=== PATIENT | male | born 1940 | race Caucasian/White ===

== ENCOUNTER 2016-07-26 11:51 | Observation (INO) | payer OTHER ==
[~2016-07-26] VITALS: Ht 180.3 cm; Wt 114.0 kg
[~2016-07-26 11:51] MED LIST: /GLYB5TA; AVAN8TAB3; CIPR500T19; CRES5TAB; FURO40TA2; LOPI600T; METFPOW4; NIAC10TA; TRIC145T19; omega 3
[2016-07-26] MEDS ORDERED: ATOR1TAB21 PO (12:13)
[2016-07-26] MEDS ORDERED: METF10004 PO (12:13)
[2016-07-26] MEDS ORDERED: ASPI1TAB PO (12:13)
[2016-07-26] MEDS ORDERED: FURO20TA2 PO (12:13)
[2016-07-26] MEDS ORDERED: VALS1TAB46 PO (12:13)
[2016-07-26] MEDS ORDERED: TRIC145T22 PO (12:13)
[2016-07-26] MEDS ORDERED: GLIP10TA6 PO (12:13)
[2016-07-26 13:37] LABS: BASO % 0.3 % (0.0-1.0); EOS # 0.1 K/mm3 (0.0-0.50); LARGE UNSTAINED CELL # 0.2 K/mm3 (0.0-0.4); LARGE UNSTAINED CELL % 3.2 % (0.0-4.0); LYMPH # 1.1 K/mm3 (1.5-4.5); LYMPH % 13.4 % (24.0-44.0); MEAN CORPUSCULAR HEMOGLOBIN 30.6 pg (27.0-33.0); MEAN CORPUSCULAR HGB CONC 33.5 g/dl (32.0-36.5); MEAN CORPUSCULAR VOLUME 91.4 fl (80.0-96.0); MONO # 0.8 K/mm3 (0.0-0.8); MONO % 11.7 % (0.0-5.0); NEUTROPHILS # 4.5 K/mm3 (1.8-7.7); NEUTROPHILS % 70.5 % (36.0-66.0); PLATELET COUNT, AUTOMATED 189 k/mm3 (150-450); WHITE BLOOD COUNT 6.4 K/mm3 (4.0-10.0)
--- NOTE | 2016-07-26 14:07 | REP ---
CHEST, TWO VIEWS: COMPARISON: 10/15/2013. Two views of the chest are performed. There is no acute infiltrate or pulmonary edema. The heart is normal in size. There is mild calcification of the thoracic aorta. There are degenerative changes of the spine. IMPRESSION: No evidence of acute infiltrate. Signed by Mark Blas MD 07/27/2016 05:10 P
[2016-07-26 14:09] LABS: ALBUMIN 3.3 GM/DL (3.2-5.2); ALKALINE PHOSPHATASE 65 U/L (45-117); ALT/SGPT 55 U/L (12-78); ANION GAP 11 MEQ/L (8-16); AST/SGOT 34 U/L (15-37); BILIRUBIN,DIRECT 0.1 MG/DL (0.0-0.2); BILIRUBIN,TOTAL 0.8 MG/DL (0.2-1.0); BLOOD UREA NITROGEN 60 MG/DL (7-18); CALCIUM LEVEL 8.7 MG/DL (8.8-10.2); CARBON DIOXIDE LEVEL 19 MEQ/L (21-32); CHLORIDE LEVEL 109 MEQ/L (98-107); CREATININE FOR GFR 1.54 MG/DL (0.70-1.30); GLOMERULAR FILTRATION RATE 47.1 (>42); SODIUM LEVEL 139 MEQ/L (136-145); TOTAL PROTEIN 6.6 GM/DL (6.4-8.2)
[2016-07-26] MEDS ORDERED: GASTROGRAFIN SOLUTION 30ML PO ONE (14:40)
--- NOTE | 2016-07-26 15:00 | ECGEPIP ---
Stationary ECG Study [facility] - ED Test Date: 2016-07-26 Pat Name: SHELBY KELLEY Department: Room: - Gender: M Senior Sas Developer: JIza : 1940 Requested By: ALEE Rao Order Number: [id number] Reading MD: Marck Fry Measurements Intervals [place] Rate: 93 P: 52 [place]: 178 QRS: 256 QRSD: 144 T: 28 QT: 372 QTc: 465 Interpretive Statements SINUS RHYTHM LAD RIGHT BUNDLE BRANCH BLOCK NO PRIORS Electronically Signed On 07-26-2016 14:59:59 EDT by Marck Fry
[2016-07-26] MEDS ORDERED: GASTROGRAFIN SOLUTION 30ML (Q9963) PO ONE (15:10)
[2016-07-26] MEDS ORDERED: ISOVUE-370 76% 100ML VIAL (Q9967) As Ordered ONE (15:55)
[2016-07-26] MEDS ORDERED: NS 1,000 ML IV SCH (16:49)
--- NOTE | 2016-07-26 17:15 | REP ---
REASON: Abdominal pain and diarrhea. PRIORS: None. CONTRAST: 100 mL [id number]. Chronic fibrotic changes are seen in the lung abrams. There are no pleural or pericardial effusions. The liver, gallbladder, spleen, pancreas, adrenal glands, and kidneys are within normal limits. The abdominal aorta is within normal limits. There is paraortic adenopathy. There are mildly dilatated fluid and gas filled small bowel loops in the abdomen. There is wall irregularity involving one small bowel loops seen in association with slight fatty infiltration of that small bowel loops mesenteric leaf. This finding is difficulty to evaluate by CT. There is a tiny dot of free air within that fatty infiltrated small bowel mesentery. There is no free fluid in the abdomen. The appendix is well visualized and is within normal limits compared. CT PELVIS: The pelvic bowel loops and their mesenteries are within normal limits. The pelvic bowel loops and their mesenteries are within normal limits. There is no free pelvic fluid or air. Bone window technique throughout the exam shows chronic spinal, hip, and sacroiliac joint degenerative changes. IMPRESSION:1. Subtle and difficulty to evaluate finding involving a loop of small bowel in the midabdomen just to the right of the midline as described above. A tiny dot of free air in the associated mesentery can not be ruled out. The findings are extremely subtle and difficult to evaluate. I am uncertain if the finding is secondary to inflammatory diseases such as Crohn's or neoplastic change. Clinical correlation and followup is necessary. 2. There is a small bowel ileus. 3. There is paraortic adenopathy which needs clinical correlation and followup. 4. Other findings as described above. These findings were discussed with Dr. David Herzog at the time of this dictation. Signed by Javier Werner DO 07/27/2016 12:04 P
[2016-07-26] MEDS ORDERED: CYAN1000VL IM (17:55)
[2016-07-26] MEDS ORDERED: FURO40TA2 PO (17:55)
[2016-07-26] MEDS: HumaLOG INSULIN (NovoLOG) PER UNIT SC SCH (18:00)
--- NOTE | 2016-07-26 18:43 | CR.PDOC ---
[facility] Consultation Consultation DATE OF CONSULTATION: Jul 26, 2016 at 13:36 PRIMARY CARE PHYSICIAN: [[facility]/Dr. Lugo] REFERRING PROVIDER: [Dr. Lam] ATTENDING PHYSICIAN: [Dr. Lam] REASON FOR CONSULTATION/CHIEF COMPLAINT: [Medical management]. HISTORY OF PRESENT ILLNESS: [Mr. Espinoza is a 76-year-old male presents to the emergency department with severe diarrhea for the last 4 days he 's had decreased appetite but denies nausea, vomiting. Denies any blood in stool. He informs me that several years ago he had similar symptoms resulted in a perforated diverticulum that was treated by Dr. Stanford at the time. He states he had been in his usual state of health prior to Sunday woke up and started developing some abdominal cramping which is progressively gotten worse over the last few days prior medical history includes hypertension, hyperlipidemia, morbid obesity, diabetes and prior perforation of diverticulum.] . ALLERGIES: Please see below. HOME MEDICATIONS: Please see below. PAST MEDICAL HISTORY: 1. Hypertension. 2. Hyperlipidemia. 3. Morbid obesity. 4. Diabetes. 5. Diverticulitis with history of perforated diverticulum. PAST SURGICAL HISTORY: 1. Perforated diverticulum resulting in exploratory laparotomy. FAMILY HISTORY: Noncontributory SOCIAL HISTORY: Quit smoking 25 years ago. Alcohol use is occasional.. He denies recent travel, sick contacts, no pets. REVIEW OF SYSTEMS: CONSTITUTIONAL: No fever, chills, weight loss, nausea or vomiting . HEENT: No headache, lightheadedness, blurred or loss of vision. No difficulty with speech or swallow. CARDIOVASCULAR: No chest pain, palpitations, paroxysmal nocturnal dyspnea or lower extremity edema RESPIRATORY: No cough, productive sputum, wheeze or hemoptysis GENITOURINARY: No dysuria, frequency, or discharge MUSCULOSKELETAL: No bone, muscle or joint pain. GASTROINTESTINAL: Abdominal cramping with diarrhea for proximally 4 days. No [place]ue[place], vomitting, but decrease in appetite. Bowel movements are loose with diarrhea, but without hematochezia or melena. No bladder or bowel incontinence. SKIN: No complaint of lesions, abrasions or rashes NEUROLOGICAL: No blurred vision, headaches, parasthesias or paralysis PSYCHIATRIC: No depression, anxiety, audiovisual hallucinations. No suicidal ideations. ENDOCRINE: Denies history of diabetes or thyroid disorder. No history of endocrine abnormalities. HEMATOLOGIC/LYMPHATIC: No lumpbs, bumps or swelling of neck, axilla or groin. No night sweats or weight loss. PHYSICAL EXAMINATION: VITAL SIGNS: Please see below. GENERAL APPEARANCE: [No acute distress, is alert, pleasant]. HEENT: [His age, right more cephalic. Eyes PERRLA. Throat clear. ]. RESPIRATORY: [Clear to auscultation bilaterally]. CARDIOVASCULAR: [Regular rate and rhythm]. ABDOMEN: [Distended, hypoactive bowel sounds. Vague tenderness with no rebound]. EXTREMITIES: [Range of motion limitations. Pulses are equal and no edema]. NEUROLOGICAL: [Cranial nerves II through XII are grossly intact]. Twelve-lead EKG sinus rhythm, appears to have a right bundle branch block but no acute ST-T wave abnormalities. CT abdomen and pelvis with contrast:1. Subtle and difficulty to evaluate finding involving a loop of small bowel in the midabdomen just to the right of the midline as described above. A tiny dot of free air in the associated mesentery can not be ruled out. The findings are extremely subtle and difficult to evaluate. I am uncertain if the finding is secondary to inflammatory diseases such as Crohn's or neoplastic change. Clinical correlation and followup is necessary. 2. There is a small bowel ileus. 3. There is paraortic adenopathy which needs clinical correlation and followup. 4. Other findings as described above. Chest x-ray: No evidence of acute infiltrate. LABORATORY DATA: Please see below. Problem list: 1. Small bowel obstruction with possible perforation with free air demonstrated on CT scan. 2. Diabetes. 3. hyperlipidemia. 4. Hypertension 5. Morbid obesity which complicates medical care. Recommendations: Patient will remain nothing by mouth. IV fluids per surgical team and will defer further evaluation per Dr. Lam. We'll place orders regarding his diabetes, with fingersticks every 6 hours with sliding scale coverage per [facility] protocol. We'll review his med reconciliation list and put appropriate hold parameters on any blood pressure medications. For tonight and will hold his Lasix and avoid any other nephrotoxic meds. Concerning the oral diabetic medications, especially Glucophage we will hold this and cover with insulin for now. DVT prophylaxis. Will defer to surgeon. Thank you for the consultation tomorrow morning. Dr. Tinoco will continue to follow this patient during her hospital stay, please feel free to contact us if any other issues should occur. Should the patient need any surgical intervention would recommend this be considered urgent and would not recommend any further workup that would delay intervention should the need arise. Vital Signs/I&O Vital Signs Date Time Temp Pulse Resp B/P (MAP) Pulse Ox O2 Delivery O2 Flow Rate FiO2 07/26/16 18:11 88 115/58 (77) 94 07/26/16 11:52 98.4 18 Room Air Laboratory Data Labs 24H Laboratory Tests 2 07/26/16 13:22: White Blood Count 6.4, Red Blood Count 4.30, Hemoglobin 13.1L, Hematocrit 39.2L , Mean Corpuscular Volume 91.4, Mean Corpuscular Hemoglobin 30.6, Mean Corpuscular Hemoglobin Concent 33.5, Red Cell Distribution Width 15.0H, Platelet Count 189, Neutrophils (%) (Auto) 70.5H, Lymphocytes (%) (Auto) 13.4L, Monocytes (%) (Auto) 11.7H, Eosinophils (%) (Auto) 1.0, Basophils (%) (Auto) 0.3 , Neutrophils # (Auto) 4.5, Lymphocytes # (Auto) 1.1L, Monocytes # (Auto) 0.8, Eosinophils # (Auto) 0.1, Basophils # (Auto) 0.0, Large Unclassified Cells % 3.2 , Large Unclassified Cells # 0.2, Urine Appearance CLEAR, Urine Color YELLOW, Urine pH 5.0, Urine Specific [place] 1.019, Urine Protein NEGATIVE, Urine Glucose (UA) NEGATIVE, Urine Ketones NEGATIVE, Urine Urobilinogen 2.0H, Urine Bilirubin NEGATIVE, Urine Leukocyte Esterase 1+H, Urine Blood NEGATIVE, Urine Nitrite NEGATIVE, Urine WBC (Auto) 8H, Urine RBC (Auto) 2, Urine Hyaline Casts ( Auto) 5, Urine Bacteria (Auto) NEGATIVE, Urine Squamous Epithelial Cells 0, Urine Sperm (Auto) , Anion Gap 11, Glomerular Filtration Rate 47.1, Calcium Level 8.7L, Aspartate Amino Transf (AST/SGOT) 34, Alanine Aminotransferase (ALT/ SGPT) 55, Alkaline Phosphatase 65, Total Bilirubin 0.8, Direct Bilirubin 0.1, Total Creatine Kinase 121, Creatine Kinase MB 2.7, Creatine Kinase MB Relative Index 2.23, Troponin I < 0.02, Total Protein 6.6, Albumin 3.3, Albumin/Globulin Ratio 1.00, Lipase 145 07/26/16 17:23: Lactic Acid Level 1.1 CBC/BMP Laboratory Tests 07/26/16 13:22 Red Blood Count 4.30, Mean Corpuscular Volume 91.4, Mean Corpuscular Hemoglobin 30.6, Mean Corpuscular Hemoglobin Concent 33.5, Red Cell Distribution Width 15.0 H, Neutrophils (%) (Auto) 70.5 H, Lymphocytes (%) (Auto) 13.4 L, Monocytes (%) (Auto) 11.7 H, Eosinophils (%) (Auto) 1.0, Basophils (%) (Auto) 0.3, Neutrophils # (Auto) 4.5, Lymphocytes # (Auto) 1.1 L, Monocytes # (Auto) 0.8, Eosinophils # (Auto) 0.1, Basophils # (Auto) 0.0 Microbiology Microbiology 07/26/16 Urine Culture, Received Pending Allergies Coded Allergies: No Known Drug Allergy (Verified Allergy, Unknown, 05/08/12) Home Medications Scheduled Aspirin (Aspirin 81) 81 Mg Tab, 81 MG PO QHS, (Reported) Atorvastatin Calcium (Atorvastatin Calcium) 20 Mg Tab, 20 MG PO DAILY, (Reported ) Cyanocobalamin (Cyanocobalamin) 1,000 Mcg/1 Ml Inj, 1,000 MCG IM QMONTH, ( Reported) Fenofibrate (Tricor) 145 Mg Tab, 145 MG PO DAILY, (Reported) Furosemide (Furosemide) 40 Mg Tab, 40 MG PO DAILY, (Reported) Glipizide (Glipizide) 10 Mg Tab, 10 MG PO BID, (Reported) takes at noon and dinner time Metformin Hydrochloride (Metformin HCl) 1,000 Mg Tab, 1,000 MG PO BID, (Reported ) Valsartan (Valsartan) 80 Mg Tab, 1 TAB PO DAILY, (Reported) ALANNAH MONTANA DO Jul 26, 2016 18:43
[2016-07-26] MEDS ORDERED: LR 1,000 ML IV SCH (19:02)
[2016-07-26] MEDS ORDERED: ACETAMINOPHEN TAB 650MG DOSE (2X325MG) PO PRN (19:15)
[2016-07-26] MEDS ORDERED: ONDANSETRON 4MG/2ML VIAL (J2405) IV PRN (19:15)
[2016-07-26] MEDS ORDERED: GLUCAGON FOR INJ 1 MG VIAL (J1610) SC PRN (19:45)
[2016-07-26] MEDS ORDERED: DEXTROSE 50% 50 ML SYRINGE IV PRN (19:45)
[2016-07-26] MEDS ORDERED: GLUCOSE 4 GM CHEW TABLET PO PRN (19:45)
[2016-07-26 20:15] VITALS: BP 119/57
[2016-07-26] MEDS ORDERED: ZOSYN 3.375 GM VIAL (J2543) As Ordered ONE (20:46)
[2016-07-26] MEDS: PIPERACILLIN/TAZOBACTAM SOD 3.375 GM in D5W MINI-BAG PLUS 50 ML IV SCH (20:59)
[2016-07-26] MEDS: ASPIRIN 81 MG ENTERIC TAB PO SCH (22:32)
[2016-07-26] MEDS: PANTOPRAZOLE 40MG INJ (PROTONIX) (C9113) IV SCH (22:32)
[2016-07-26] MEDS: SENOKOT S TAB PO SCH (22:33)
[2016-07-26] MEDS: HEPARIN SOD (PORCINE) 5000 UNITS/ML VIAL SC SCH (22:33)
[2016-07-27] MEDS: PIPERACILLIN/TAZOBACTAM SOD 3.375 GM in D5W MINI-BAG PLUS 50 ML IV SCH ×4 (03:10→21:06)
[2016-07-27 05:47] LABS: CALCIUM LEVEL 8.4 MG/DL (8.8-10.2); CREATININE FOR GFR 1.68 MG/DL (0.70-1.30); GLOMERULAR FILTRATION RATE 42.6 (>42); MAGNESIUM LEVEL 1.6 MG/DL (1.8-2.4); MEAN CORPUSCULAR HEMOGLOBIN 30.7 pg (27.0-33.0); MEAN CORPUSCULAR HGB CONC 33.4 g/dl (32.0-36.5); POTASSIUM SERUM 4.2 MEQ/L (3.5-5.1); RED CELL DISTRIBUTION WIDTH 15.2 % (11.5-14.5); WHITE BLOOD COUNT 6.7 K/mm3 (4.0-10.0)
[2016-07-27 06:00] VITALS: BP 113/57
[2016-07-27] MEDS: HumaLOG INSULIN (NovoLOG) PER UNIT SC SCH ×4 (06:00→17:36)
[2016-07-27] MEDS: HEPARIN SOD (PORCINE) 5000 UNITS/ML VIAL SC SCH ×3 (06:10→21:07)
[2016-07-27] MEDS ORDERED: MAG SULF 1GM/100ML (MAG RUN) 1 GM in APPROPRIATE DILUENT 1 EA IV ONE (07:30)
[2016-07-27] MEDS: ATORVASTATIN 20 MG TAB PO SCH (09:06)
[2016-07-27] MEDS: FENOFIBRATE 145 MG TAB (TRICOR) PO SCH (09:06)
[2016-07-27] MEDS: SENOKOT S TAB PO SCH ×2 (09:06→21:06)
--- NOTE | 2016-07-27 11:35 | IPNPDOC ---
Text Note Date of Service The patient was seen on 07/27/16. NOTE Subjective: Patient is a 76 year old male with a PMHx of HTN, DLP, Morbid obesity , NIDM2, and Diverticulosis who presented to the ER with complaints of diarrhea for 4 days, associated with appetite and abdominal cramping. Patient was admitted to medical surgical floor under general surgery's service. Upon evaluation by surgery, abdomen was noted to be benign and he was started on a liquid diet. Patient was seen and examined at the bedside. Currently he has been tolerating his diet, no nausea, vomiting, abdominal cramping. He notes that he has had a bowel movement this morning. Objective: Vitals (See below) General: Lying in bed, no acute distress, comfortable, AAOx3 HEENT: NC, AT CVS: RRR, +S1S2 Lungs: Fair air entry b/l, -w/r/r Abdomen: Soft, ND, NT, +BSx4 Extremities: +PPx4, - Edema, - Calf tenderness Assessment and plan: 1. Abdominal pain associated with diarrhea - possibly 2/2 gastroenteritis, possibly 2/2 small bowel obstruction, less likely 2/2 perforation - Symptoms have resolved, no more diarrhea - Has had bowel movement this morning, no nausea or vomiting - Physical reveals a benign abdomen without guarding or rigidity - CT abdomen / pelvis (07/26): possible small bowel ileus, adenopathy, possible small focus of air - Labs within normal limits - c/w IV fluid hydration and Zosyn (Day #2) 2. PRATIBHA - likely 2/2 pre-renal etiology 2/2 hypovolemia - Baseline Cr of 1.1 - Cr has been mildly elevated - c/w IV fluid hydration 3. NIDDM2 - c/w ISS 4. DLP - c/w Atorvastatin and Fenofibrate 5. HTN - BP controlled without medications at this time (re: possibly 2/2 hypovolemia) - Furosemide and Valsartan on hold 6. Morbid obesity 7. Hx of Diverticulosis 8. GI prophylaxis - c/w Protonix 9. DVT prophylaxis - c/w Heparin VS,Fishbone, I+O VS, Fishbone, I+O Laboratory Tests 07/26/16 13:22 Red Blood Count 4.30, Mean Corpuscular Volume 91.4, Mean Corpuscular Hemoglobin 30.6, Mean Corpuscular Hemoglobin Concent 33.5, Red Cell Distribution Width 15.0 H, Neutrophils (%) (Auto) 70.5 H, Lymphocytes (%) (Auto) 13.4 L, Monocytes (%) (Auto) 11.7 H, Eosinophils (%) (Auto) 1.0, Basophils (%) (Auto) 0.3, Neutrophils # (Auto) 4.5, Lymphocytes # (Auto) 1.1 L, Monocytes # (Auto) 0.8, Eosinophils # (Auto) 0.1, Basophils # (Auto) 0.0 07/27/16 04:59 Red Blood Count 3.77 L, Mean Corpuscular Volume 92.0, Mean Corpuscular Hemoglobin 30.7, Mean Corpuscular Hemoglobin Concent 33.4, Red Cell Distribution Width 15.2 H, Calcium Level 8.4 L Vital Signs Date Time Temp Pulse Resp B/P (MAP) Pulse Ox O2 Delivery O2 Flow Rate FiO2 07/27/16 06:00 97.0 53 18 113/57 (75) 100 Room Air I&O- Last 24 Hours up to 6 AM 07/27/16 05:59 Intake Total 0 ml Output Total 0 ml Balance 0 ml MERLE POON MD Jul 27, 2016 11:35
[2016-07-27 14:00] VITALS: BP 108/53
[2016-07-27] MEDS ORDERED: HumaLOG INSULIN (NovoLOG) PER UNIT SC SCH (21:00)
[2016-07-27] MEDS: PANTOPRAZOLE 40MG INJ (PROTONIX) (C9113) IV SCH (21:06)
[2016-07-27] MEDS: ASPIRIN 81 MG ENTERIC TAB PO SCH (21:06)
[2016-07-27 22:00] VITALS: BP 134/63
[2016-07-28] MEDS: PIPERACILLIN/TAZOBACTAM SOD 3.375 GM in D5W MINI-BAG PLUS 50 ML IV SCH ×2 (02:40→08:20)
[2016-07-28 06:00] VITALS: BP 132/72
[2016-07-28 06:03] LABS: MEAN CORPUSCULAR HEMOGLOBIN 30.2 pg (27.0-33.0); MEAN CORPUSCULAR VOLUME 91.6 fl (80.0-96.0); RED CELL DISTRIBUTION WIDTH 15.1 % (11.5-14.5); WHITE BLOOD COUNT 4.5 K/mm3 (4.0-10.0)
[2016-07-28 06:13] LABS: CALCIUM LEVEL 8.7 MG/DL (8.8-10.2); CREATININE FOR GFR 1.27 MG/DL (0.70-1.30); GLOMERULAR FILTRATION RATE 58.9 (>42); MAGNESIUM LEVEL 2.1 MG/DL (1.8-2.4); POTASSIUM SERUM 4.7 MEQ/L (3.5-5.1)
[2016-07-28] MEDS: HEPARIN SOD (PORCINE) 5000 UNITS/ML VIAL SC SCH (06:15)
[2016-07-28] MEDS: HumaLOG INSULIN (NovoLOG) PER UNIT SC SCH ×2 (07:49→12:15)
[2016-07-28] MEDS: ATORVASTATIN 20 MG TAB PO SCH (08:21)
[2016-07-28] MEDS: SENOKOT S TAB PO SCH (08:21)
[2016-07-28] MEDS: FENOFIBRATE 145 MG TAB (TRICOR) PO SCH (08:21)
--- NOTE | 2016-07-28 10:54 | IPNPDOC ---
Text Note Date of Service The patient was seen on 07/28/16. NOTE Subjective: Patient is a 76 year old male with a PMHx of HTN, DLP, Morbid obesity , NIDM2, and Diverticulosis who presented to the ER with complaints of diarrhea for 4 days, associated with appetite and abdominal cramping. Patient was admitted to medical surgical floor under general surgery's service. Upon evaluation by surgery, abdomen was noted to be benign and he was started on a liquid diet. Patient was seen and examined at the bedside. Patient noted that yesterday afternoon he had some abdominal pain, that has since resolved. Denied any nausea , vomiting abdominal pain, constipation or diarrhea today. Objective: Vitals (See below) General: Lying in bed, no acute distress, comfortable, AAOx3 HEENT: NC, AT CVS: RRR, +S1S2 Lungs: Fair air entry b/l, -w/r/r Abdomen: Soft, ND, NT, +BSx4 Extremities: +PPx4, - Edema, - Calf tenderness Assessment and plan: 1. s/p Abdominal pain associated with diarrhea - possibly 2/2 gastroenteritis - likely 2/2 viral etiology, less likely 2/2 small bowel obstruction, less likely 2/2 perforation - Symptoms have resolved; no abdominal pain, diarrhea / nausea / vomiting - Physical reveals a benign abdomen without guarding or rigidity, + bowel sounds - CT abdomen / pelvis (07/26): possible small bowel ileus, adenopathy, possible small focus of air - Labs within normal limits - c/w Zosyn (Day #3) 2. s/p PRATIBHA - likely 2/2 pre-renal etiology 2/2 hypovolemia - Baseline Cr of 1.1 - Cr has now normalized - s/p IV fluid hydration 3. NIDDM2 - c/w ISS 4. DLP - c/w Atorvastatin and Fenofibrate 5. HTN - BP controlled without medications at this time (re: possibly 2/2 hypovolemia) - Furosemide and Valsartan on hold 6. Morbid obesity 7. Hx of Diverticulosis 8. GI prophylaxis - c/w Protonix 9. DVT prophylaxis - c/w Heparin VS,Fishbone, I+O VS, Fishbone, I+O Laboratory Tests 07/28/16 05:47 Red Blood Count 3.92 L, Mean Corpuscular Volume 91.6, Mean Corpuscular Hemoglobin 30.2, Mean Corpuscular Hemoglobin Concent 33.0, Red Cell Distribution Width 15.1 H, Calcium Level 8.7 L Vital Signs Date Time Temp Pulse Resp B/P (MAP) Pulse Ox O2 Delivery O2 Flow Rate FiO2 07/28/16 06:00 97.0 80 19 132/72 (92) 95 Room Air I&O- Last 24 Hours up to 6 AM 07/28/16 05:59 Intake Total 1165 ml Output Total 525 ml Balance 640 ml MERLE POON MD Jul 28, 2016 10:54
--- NOTE | 2016-07-29 01:51 | DSES ---
DATE OF ADMISSION: 07/26/2016 DATE OF DISCHARGE: 07/28/2016 ADMISSION DIAGNOSIS: Ileus. DISCHARGE DIAGNOSIS: Ileus likely secondary to either a viral or bacterial source. HOSPITAL COURSE: The patient is a 76-year-old male who presented on 07/26 with chief complaint of nausea, vomiting and crampy left abdominal pains. He was brought in to the emergency room, had a CT scan that showed a possible closed loop obstruction with dilation of small bowel, as well as possible free air outside his small intestine. On exam, his abdomen was soft. His nausea, vomiting had resolved and he had felt much better. However, due to the abnormal CT scan, recommendation was to keep him overnight to monitor him. He was started on clear liquid diet the next morning 07/27. He was continuing to improve, felt much better. He was advanced to a regular diet by lunchtime. Labs were all improved during the day. Vital signs were stable. However, after advancing to a regular diet around noontime, he had a little bit of exacerbation of this crampy abdominal pain. Therefore, we kept him overnight again. Today 07/28, he again is feeling much improved. He has been tolerating regular diet last evening and this morning. No more nausea or vomiting. Having bowel movements, passing gas, ambulating without difficulty. Therefore, plan is to discharge home today. I explained to him that this could be an intermittent thing; however, due to the fact that he does have an incarcerated fat containing incisional hernia in his midabdomen that could be causing some of these symptoms. I advised him to followup with me in the office if he continues to have these intermittent crampy pains. We can schedule him for repair of the hernia and do a diagnostic laparoscopy with lysis of adhesions at the same time to see if we can find any other causes for his crampy pains.
--- NOTE | 2016-07-31 12:14 | HPE ---
DATE OF ADMISSION: 07/26/2016 CHIEF COMPLAINT: Nausea and vomiting. HISTORY OF PRESENT ILLNESS: The patient is a 76-year-old male who came to emergency room with diarrhea for the past 4 days along with decrease of appetite and increasing crampy pains periumbilically. He did have similar symptoms in the past that resulted in perforated diverticulitis and because of that concern he came into the emergency room for evaluation. In the emergency room (ER), he had a CT scan done which showed a small bowel ileus along with a loop of small bowel in the mid abdomen just lateral to the umbilicus with a tiny dot possible free air. However, that is very nonspecific. Because of these findings, I was asked to evaluate, On exam, he does have significant tenderness just left of the umbilicus, fairly localized area. There is no diffuse tenderness. Denies any nausea or emesis. He does have these loose stools. He is still passing gas. Does not feel distended. No surgeries other than his exploratory surgery with diverticulitis that was perforated resulting in bowel resection. However, he states that ,that was repaired primarily and he did not have a colostomy for it. No recent travel. No change in his diet. No one around him has been sick. PAST MEDICAL HISTORY: 1. Hypertension. 2. Hyperlipidemia. 3. Diabetes. 4. Diverticulitis and diverticulosis. PAST SURGICAL HISTORY: Perforated diverticulosis resulting exploratory laparotomy with primary repair. ALLERGIES: Please see med rec. HOME MEDICATIONS: Please see med rec. FAMILY HISTORY: Noncontributory. REVIEW OF SYSTEMS: Pertinent positives, negative stated in the HPI. PHYSICAL EXAMINATION: General: Alert and oriented times three. No acute distress. Vital signs: Temperature 94, pulse 80, respirations 18, blood pressure 115/50, by pulse oximetry 94% room air. HEENT: Pupils equal, round and react to light accommodation. Heart: S1, S2, regular rate and rhythm. Lungs: Clear to auscultation bilaterally. Abdomen: Soft. Tender to palpation in left midabdomen. Localized guarding. No signs generalized peritonitis. Extremities: No clubbing, cyanosis or edema. LABORATORIES: White count 6.4, hemoglobin 13.1, platelets 189. Lactic acid 1.1, potassium 5, creatinine 1.54. IMAGING: CT abdomen and pelvis shows subtle difficult to evaluate finding involving a loop of small bowel in the mid abdomen just to the right of midline a tiny dot of free air in the associated mesentery cannot be ruled out. The findings are extremely subtle and difficult to evaluate. Uncertain if this is related to inflammatory disease versus neoplastic. It was a very small bowel ileus. ASSESSMENT AND PLAN: The patient 76-year-old male with findings on CAT scan that are nonspecific for an ileus versus partial obstruction versus partial small bowel perforation. On exam, the patient does not have any findings of peritonitis. No fevers or chills. Normal white count . At this time, will likely treat as a gastroenteritis. Will keep him nothing by mouth for now with IV fluids, antibiotics. As long as he does not show any signs of increasing fevers, pain, leukocytosis by morning, we will start him on a diet and slowly advance. If he is does show signs of increasing pain, elevated lactic acidosis, increasing white blood cell count or fevers, then I will consider diagnostic laparoscopy to determine the cause of this obstruction. This could all be again just related to gastroenteritis. However, due to his extensive history in the past with his large surgery, this could also be a partial obstruction secondary to adhesions. So could treat medically for now and monitor him closely with further intervention as necessary.
== END 2016-07-28 13:21 | disposition home or self-care (01) ==
LOC: M ED 13:36 → M ED INP 19:02 → M MSPAV 20:20
PROVIDERS: ADMIT Surgery; ATTEND Surgery
DX: K56.7 Ileus, unspecified (principal); I10 Essential (primary) hypertension; E11.9 Type 2 diabetes mellitus without complications; K57.30 Diverticulosis of large intestine without perforation or abscess without bleeding; K57.32 Diverticulitis of large intestine without perforation or abscess without bleeding; E66.01 Morbid (severe) obesity due to excess calories; Z87.891 Personal history of nicotine dependence; Z79.82 Long term (current) use of aspirin; Z79.899 Other long term (current) drug therapy
CPT/HCPCS: 36415; 71020; 74177; 80048; 80076; 81001; 82550; 82553; 83605; 83690; 83735; 84484; 85025; 85027; 87086; 93005; 93041; 94760; 96361; 96365; 96366; 96372; 96375; 96376; 99285; C9113; G0378; J2543; J3475; Q9963; Q9967

== ENCOUNTER 2018-07-12 14:25 | Emergency (ER) | payer MEDICARE, OTHER ==
[~2018-07-12] VITALS: Ht 180.3 cm; Wt 126.1 kg
[~2018-07-12 14:25] MED LIST changes: -/GLYB5TA; +ASPI81TA26 PO; +ATOR1TAB21 PO; +CYAN1000VL IM; +FURO20TA2 PO; +FURO40TA2 PO; +GLIP10TA6 PO; +GLYB1TAB29; +METF10004 PO; +TRIC145T22 PO; +VALS1TAB66 PO
[2018-07-12] MEDS ORDERED: LANTINJ4 SC ×2 (14:35)
[2018-07-12] MEDS ORDERED: VICT18IN2 (14:35)
[2018-07-12 15:21] LABS: BASO % 0.5 % (0.0-1.0); EOS # 0.2 10^3/uL (0.0-0.50); EOS % 1.9 % (0.0-3.0); HEMATOCRIT 41.8 % (42.0-52.0); HEMOGLOBIN 13.5 g/dl (13.5-17.5); LYMPH # 1.8 10^3/uL (1.5-4.5); LYMPH % 22.9 % (24.0-44.0); MEAN CORPUSCULAR HEMOGLOBIN 30.3 pg (27.0-33.0); MEAN CORPUSCULAR HGB CONC 32.3 g/dl (32.0-36.5); MEAN CORPUSCULAR VOLUME 93.7 fl (80.0-96.0); MONO % 11.9 % (0.0-5.0); NEUTROPHILS % 61.6 % (36.0-66.0); PLATELET COUNT, AUTOMATED 276 10^3/uL (150-450); RED BLOOD COUNT 4.46 10^6/uL (4.30-6.10); WHITE BLOOD COUNT 8.1 10^3/uL (4.0-10.0)
[2018-07-12] MEDS ORDERED: NS 1,000 ML IV ONE (15:45)
[2018-07-12 15:51] LABS: ALBUMIN 3.4 GM/DL (3.2-5.2); BILIRUBIN,DIRECT 0.2 MG/DL (0.0-0.2); BILIRUBIN,TOTAL 0.4 MG/DL (0.2-1.0); CALCIUM LEVEL 8.9 MG/DL (8.8-10.2); CREATININE FOR GFR 1.39 MG/DL (0.70-1.30); GLOMERULAR FILTRATION RATE 52.7 (>42); POTASSIUM SERUM 4.7 MEQ/L (3.5-5.1); TOTAL PROTEIN 7.2 GM/DL (6.4-8.2)
[2018-07-12] MEDS ORDERED: CEFP200T PO (18:41)
[2018-07-12] MEDS ORDERED: KEFL500C17 PO (18:58)
[2018-07-12 19:00] VITALS: BP 140/63
--- NOTE | 2018-07-13 06:50 | REP ---
BILATERAL LOWER EXTREMITY DUPLEX DOPPLER VENOUS ULTRASOUND: Real-time compression and duplex Doppler interrogation of bilateral lower extremity deep venous systems is performed. Bilaterally, common femoral, superficial femoral and popliteal veins are fully compressible with transducer pressure and demonstrate normal spontaneous and phasic flow without evidence of deep venous thrombosis. There is bilateral inguinal adenopathy. The largest on the right is 3.9 x 1.1 x 2.7 cm and left 4.6 x 1.0 x 2.3 cm. Electronically Signed by Mark Blas MD 07/16/2018 09:54 A
--- NOTE | 2018-07-13 07:52 | REP ---
KUB ONE VIEW: HISTORY: Hyperactive bowel sounds. Air is present in small and large intestine. There are no air fluid levels or dilated loops of intestine. There is no pneumoperitoneum. IMPRESSION: Nonspecific bowel gas pattern. Electronically Signed by Michael Zapata MD 07/13/2018 07:55 A
--- NOTE | 2018-07-16 13:18 | ED PDOC ---
Post-Departure Follow-Up dr mathis faxed formal report of us extrem for Darell Akhtar MD Jul 16, 2018 13:18
== END 2018-07-12 19:03 | disposition home or self-care (01) ==
LOC: M ED 14:25
DX: N39.0 Urinary tract infection, site not specified (principal); E86.0 Dehydration; N18.9 Chronic kidney disease, unspecified; R79.89 Other specified abnormal findings of blood chemistry; E11.9 Type 2 diabetes mellitus without complications; I12.9 Hypertensive chronic kidney disease with stage 1 through stage 4 chronic kidney disease, or unspecified chronic kidney disease; Z79.899 Other long term (current) drug therapy; Z79.82 Long term (current) use of aspirin; Z79.4 Long term (current) use of insulin; Z87.891 Personal history of nicotine dependence

== ENCOUNTER → 2018-07-19 | Outpatient (REF) | payer MEDICARE ==
[~2018-07-19] MED LIST changes: +CEFP200T PO; +KEFL500C17 PO; +LANTINJ4 SC; +VICT18IN2
[2018-07-19 20:07] LABS: CALCIUM LEVEL 10.8 MG/DL (8.8-10.2); CREATININE FOR GFR 1.55 MG/DL (0.70-1.30); GLOMERULAR FILTRATION RATE 46.5 (>42); POTASSIUM SERUM 4.8 MEQ/L (3.5-5.1)
== END ==
LOC: M LABDRWAD 19:01
PROVIDERS: ATTEND Nurse Practitioner Family
DX: I10 Essential (primary) hypertension (principal)

== ENCOUNTER → 2018-08-22 | Outpatient (CLI) | payer MEDICARE ==
[~2018-08-22] MED LIST changes: +ALBU8.5H IH; +DIPH2.5T15 PO; +FOLGTAB5 PO; +KETO2CR TOP
[2018-08-22 17:40] LABS: ALBUMIN 3.7 GM/DL (3.2-5.2); BILIRUBIN,TOTAL 0.4 MG/DL (0.2-1.0); CALCIUM LEVEL 9.1 MG/DL (8.8-10.2); CREATININE FOR GFR 1.42 MG/DL (0.70-1.30); GLOMERULAR FILTRATION RATE 51.5 (>42); POTASSIUM SERUM 4.6 MEQ/L (3.5-5.1); TOTAL PROTEIN 6.7 GM/DL (6.4-8.2)
[2018-08-22 17:42] LABS: BASO % 0.4 % (0.0-1.0); EOS # 0.2 10^3/uL (0.0-0.50); EOS % 2.4 % (0.0-3.0); HEMATOCRIT 40.2 % (42.0-52.0); HEMOGLOBIN 12.9 g/dl (13.5-17.5); LYMPH % 27.8 % (24.0-44.0); MEAN CORPUSCULAR HEMOGLOBIN 30.1 pg (27.0-33.0); MEAN CORPUSCULAR HGB CONC 32.1 g/dl (32.0-36.5); MEAN CORPUSCULAR VOLUME 93.9 fl (80.0-96.0); MONO # 0.7 10^3/uL (0.0-0.8); MONO % 10.1 % (0.0-5.0); NEUTROPHILS # 4.2 10^3/uL (1.8-7.7); NEUTROPHILS % 58.9 % (36.0-66.0); PLATELET COUNT, AUTOMATED 221 10^3/uL (150-450); RED BLOOD COUNT 4.28 10^6/uL (4.30-6.10); WHITE BLOOD COUNT 7.2 10^3/uL (4.0-10.0)
== END ==
LOC: M LABDRWAD 11:38
PROVIDERS: ATTEND Nurse Practitioner Family
DX: R19.7 Diarrhea, unspecified (principal)

== ENCOUNTER → 2018-08-22 | Outpatient (REF) | payer MEDICARE | LOC: M LAB REF 12:08 | PROVIDERS: ATTEND Nurse Practitioner Family | DX: R19.7 Diarrhea, unspecified (principal) ==

== ENCOUNTER → 2018-09-05 | Outpatient (CLI) | payer MEDICARE ==
[~2018-09-05] MED LIST changes: +LIDOCAINE 1% MDV 20ML VIAL As Ordered ONE
[2018-09-05 13:25] VITALS: BP 155/66
--- NOTE | 2018-09-05 17:08 | REP ---
ULTRASOUND-GUIDED LEFT GROIN LYMPH NODE BIOPSY The procedure was performed under the direct supervision of Dr. Nunez. The patient has a history of bilateral inguinal adenopathy seen on a previous ultrasound dated 07/12/2018. The largest lymph node was on the left measuring 4.6 x 1.0 x 8-0.3 cm. This was requested for biopsy. The risks and benefits of the procedure were explained to the patient and informed consent was obtained. The left inguinal lymph node was localized using ultrasound guidance. The skin was prepped and draped in a sterile fashion. 1% lidocaine was used as a local anesthetic. Using ultrasound guidance a 19/20 gauge coaxial needle biopsy system was inserted and advanced into the lymph node. 10 core biopsy samples were obtained and sent to lab. The patient tolerated the procedure well and there were no immediate complications. After the appropriate amount of monitored convalescence the patient was discharged from the department. Reviewed by ANAIS Nayak 09/05/2018 04:33 P Electronically Signed by Abner Nunez MD 09/05/2018 04:59 P
== END ==
LOC: M IRPRO 11:57
PROVIDERS: ATTEND Internal Medicine Hematology & Oncology
DX: R59.0 Localized enlarged lymph nodes (principal); C43.9 Malignant melanoma of skin, unspecified

== ENCOUNTER → 2018-09-27 | Outpatient (CLI) | payer MEDICARE ==
[~2018-09-27] MED LIST changes: +GASTROGRAFIN SOLUTION 30ML (Q9963) As Ordered ONE; +ISOVUE-370 76% 100ML VIAL (Q9967) As Ordered ONE; -LIDOCAINE 1% MDV 20ML VIAL As Ordered ONE
--- NOTE | 2018-09-27 12:57 | REP ---
REASON FOR EXAM: Diarrhea. COMPARISON: 07/26/2016 The lung bases are unchanged. There is mild bibasilar cylindrical bronchiectasis. The liver, gallbladder, spleen, pancreas, adrenal glands, and kidneys are within normal limits and essentially unchanged. The abdominal aorta and para-aortic regions are unchanged. There is para-aortic adenopathy, status quo. There are multiple mildly dilated gas and fluid filled small bowel loops. The fatty infiltration seen in the small bowel mesentery on the prior exam is no longer present. There is a small ventral hernia through which only mesentery protrudes, status quo. There is no evidence of free fluid or free air. CT PELVIS: There is no evidence of a pelvic mass or adenopathy. There is no free fluid or free air. The pelvic bowel loops are within normal limits. Bone window technique throughout the exam shows chronic spinal, hip, and sacroiliac joint degenerative changes, status quo. IMPRESSION: 1. There is evidence of a mild small bowel ileus. This needs to be correlated clinically. 2. Small bowel mesenteric fatty infiltration seen on the prior exam has abated. 3. There is para-aortic adenopathy of uncertain etiology, status quo. 4. Unchanged small ventral hernia. 5. Chronic bibasilar lung changes, as described above. Electronically Signed by Javier Werner DO 09/27/2018 02:20 P
== END ==
LOC: M RAD 08:20
PROVIDERS: ATTEND Surgery
DX: R19.7 Diarrhea, unspecified (principal)
CPT/HCPCS: 74177; Q9963; Q9967

== ENCOUNTER 2019-08-12 08:59 | Inpatient (IN) | payer MEDICARE ==
[~2019-08-12] VITALS: Ht 180.3 cm; Wt 117.5 kg
[~2019-08-12 08:59] MED LIST changes: -ALBU8.5H IH; +ALBU8.5H INH; -GASTROGRAFIN SOLUTION 30ML (Q9963) As Ordered ONE; -ISOVUE-370 76% 100ML VIAL (Q9967) As Ordered ONE; -VICT18IN2; +VICT18IN2 SC
[2019-08-12 10:10] LABS: BASO % 0.3 % (0.0-1.0); EOS % 0.1 % (0.0-3.0); HEMATOCRIT 33.9 % (42.0-52.0); HEMOGLOBIN 10.7 g/dl (13.5-17.5); LYMPH # 1.3 10^3/uL (1.5-5.0); LYMPH % 14.7 % (24.0-44.0); MEAN CORPUSCULAR HEMOGLOBIN 28.3 pg (27.0-33.0); MEAN CORPUSCULAR HGB CONC 31.6 g/dl (32.0-36.5); MEAN CORPUSCULAR VOLUME 89.7 fl (80.0-96.0); MONO # 1.3 10^3/uL (0.0-0.8); MONO % 14.4 % (0.0-5.0); NEUTROPHILS # 6.2 10^3/uL (1.5-8.5); NEUTROPHILS % 69.2 % (36.0-66.0); PLATELET COUNT, AUTOMATED 399 10^3/uL (150-450); RED BLOOD COUNT 3.78 10^6/uL (4.30-6.10)
[2019-08-12] MEDS ORDERED: NS 500 ML IV ONE (10:15)
[2019-08-12 10:39] LABS: ALBUMIN 2.3 GM/DL (3.2-5.2); BILIRUBIN,DIRECT 0.9 MG/DL (0.0-0.2); BILIRUBIN,TOTAL 1.4 MG/DL (0.2-1.0); CALCIUM LEVEL 9.5 MG/DL (8.8-10.2); CREATININE FOR GFR 2.13 MG/DL (0.70-1.30); GLOMERULAR FILTRATION RATE 32.1 (>42); TOTAL PROTEIN 6.4 GM/DL (6.4-8.2)
[2019-08-12] MEDS ORDERED: NS 1,000 ML IV ONE (12:45)
[2019-08-12] MEDS ORDERED: METF-838 PO (13:26)
[2019-08-12] MEDS ORDERED: FURO20TA2 PO (13:26)
[2019-08-12] MEDS ORDERED: ATOR1TAB19 PO (13:26)
--- NOTE | 2019-08-12 13:35 | REP ---
CHEST SINGLE VIEW: Single view of the chest is performed. There is a round mass density in the right mid lung zone at the level of the right hilum, approximately 7 cm in diameter. The left lung is clear. The heart is normal in size. There are degenerative changes of the spine. IMPRESSION: Right lung mass approximately 7 cm in diameter. Electronically Signed by Mark Blas MD 08/12/2019 07:38 P
[2019-08-12] MEDS ORDERED: MORPHINE 2 MG/ML 1ML VIAL (J2270) IV ONE ×2 (14:00→22:45)
--- NOTE | 2019-08-12 15:03 | REP ---
REASON: Prior plain film examination obtained today showed a large right lung mass. The lack of intravenous contrast decreases the sensitivity of the exam. There are no prior chest CTs for comparison. There is mediastinal and bilateral hilar adenopathy right greater than left. There are no pleural or pericardial effusions. The imaged upper abdomen shows numerable low density masses throughout the imaged portion of the liver. Bone window technique throughout the exam shows age-related chronic changes involving the spine and shoulders right greater than left. Evaluation of the lung abrams shows a large mass in the right upper lobe extending into the right hilar measuring approximately 7.5 x 7 x 6.6 cm. There is an additional satellite nodule in the right middle lobe, which measures approximately 1.9 cm. There are other numerable 2 to 5 mm sized nodules spread through all lung abrams bilaterally. There are chronic changes also seen in the lung abrams with cylindrical bronchiectasis and areas of basilar fibrotic change. IMPRESSION: Right lung masses consistent with neoplasm along with evidence of hepatic metastasis. There is significant adenopathy as well as described above. Electronically Signed by Javier Werner DO 08/12/2019 05:28 P
[2019-08-12 15:37] VITALS: BP 125/76
[2019-08-12] MEDS ORDERED: oxyCODONE 5MG TAB PO ONE (16:15)
[2019-08-12] MEDS ORDERED: SENOKOT S TAB PO PRN (16:15)
[2019-08-12] MEDS ORDERED: oxyCODONE 5MG TAB PO PRN (16:15)
[2019-08-12] MEDS: MORPHINE 10 MG/ML 1ML VIAL (J2270) IV PRN (16:42)
[2019-08-12] MEDS ORDERED: GLUCAGON INJ 1MG VIAL SC PRN (17:00)
[2019-08-12] MEDS ORDERED: FUROSEMIDE 40MG/4ML VIAL (J1940) IV ONE (17:00)
[2019-08-12] MEDS ORDERED: DEXTROSE 50% 50 ML SYRINGE IV PRN (17:00)
[2019-08-12] MEDS ORDERED: GLUCOSE 4GM CHEW TABLET PO PRN (17:00)
[2019-08-12] MEDS: HumaLOG INSULIN (NovoLOG) PER UNIT SC SCH (17:30)
--- NOTE | 2019-08-12 18:33 | HPE ---
DATE OF ADMISSION: 08/12/2019 CHIEF COMPLAINT: Shortness of breath. HISTORY OF THE PRESENT ILLNESS: This is a 79-year-old DO NOT RESUSCITATE, DO NOT INTUBATE male with a history of stage IV melanoma on the right upper extremity, deep vein thrombosis (DVT) in the left lower extremity, bowel perforation with resection due to perforated diverticulum in 2009, basal cell carcinoma in 2013 in [place], carpal tunnel and hypertension, diabetes, presents to the emergency room with a 1-week history of worsening shortness of breath and pain in the upper neck and cervical region and shoulder area. The patient describes it as achy with no improvement with taking three tablets of acetaminophen daily. Worse with walking or sitting or trying to get up; says he has not seen a physician for this. This was accompanied with shortness of breath for about a week, better when he was given oxygen in the emergency room. No prior episodes of shortness of breath. No chest pain, pressure or tightness. No hemoptysis. No history of pulmonary embolism (PE) in the past. Has had decrease in appetite with a 10-pount weight loss from coming back from [place] June 19. Otherwise denies any nausea, vomiting, diarrhea, abdominal pain. Denies any abdominal distention, changes in sleep habits. Able to ambulate without much difficulty and uses his cane. Denies any dysuria, urgency, frequency. In the emergency room (ER), evaluation included CT chest, which showed a right upper lobe mass, as well as a right satellite nodule in the right middle lobe and numerous 2 to 5 mm size nodules spread throughout the lung abrams bilaterally. There is some chronic cylindrical bronchiectasis and basilar fibrotic change. Significant adenopathy is noted and evidence of hepatic metastasis. Hospitalist service was called to admit the patient for a new diagnosis of metastatic lung cancer with known history of smoking but quit 25 years ago. PAST MEDICAL HISTORY: Hypertension. Hyperlipidemia. Diabetes. Morbid obesity, body mass index (BMI) of 35.8. Diverticulitis with perforated diverticulum requiring bowel resection in 2009. Basal cell carcinoma removal 2013, 2018 in [place]. Melanoma in [facility] in April 2016. Carpal tunnel of the right hand. DVT left lower leg. ALLERGIES: No known drug allergies. HOME MEDICATIONS: - aspirin 81 mg daily - cyanocobalamin 1000 mcg IM monthly. - metformin 500 mg nightly - valsartan 80 mg daily - glipizide 10 mg twice a day - Victoza 1.2 mg subcu daily - albuterol two puffs every 4 hours as needed - atorvastatin 10 mg nightly - fenofibrate 145 mg daily - Lasix 60 mg daily - Lantus insulin 50 units subcu every morning FAMILY HISTORY: Mother age 79 with complications of diabetes. Two brothers, one of coronary artery disease and myocardial infarction (MS). Two sisters, one living, one with diabetes. He has five children, three are living, two . One of coronary artery disease, another of chronic obstructive pulmonary disease (COPD) at the age of 55 and 57 respectively. Father of diabetes at the age of 78. Mother at the age of 79 due to diabetes as well. SOCIAL HISTORY: Lives with . Patient is DO NOT RESUSCITATE, DO NOT INTUBATE. He drinks alcohol. Retired. No recreational drug use and quit smoking 25 years ago. REVIEW OF SYSTEMS: Per history of the present illness; 12-point system otherwise negative. PHYSICAL EXAMINATION: Vital Signs: Temperature 98.9, pulse 117, respiratory rate 19, blood pressure 139/62, 95% on two liters nasal cannula. Generally, patient is awake, alert, oriented to person, place and time, answering questions appropriately. Anicteric sclerae. No jaundice. No cervical lymphadenopathy/thyromegaly. No jugular venous distention (JVD). Moist mucous membranes. Lungs: Air entry is greater on the left than on the right. There is no wheezing or rales. Diminished breath sounds and some dullness to percussion in the right upper lobe. Heart: S1, S2, sinus tachycardia. Abdomen is obese, soft, nontender, nondistended. Positive bowel sounds. No rebound, guarding or hepatosplenomegaly. Extremities: 2+ pitting edema on the left. Right has 1+ pitting edema. White count 9, hemoglobin 10, hematocrit 33, platelet count 399. Sodium 142, potassium 4, chloride 108, bicarbonate 23, BUN 57, creatinine 2.13, glucose of 60, lactic acid 1.6, calcium 9.5, ionized calcium 4.8, total bilirubin 1.4, direct bilirubin 0.9, AST 160, ALT 101, alkaline phosphatase of 355, BNP of 442, albumin of 2.3. ASSESSMENT AND PLAN: This is a 79-year-old male with a history of obesity, hypertension, diabetes, dyslipidemia, melanoma, basal cell cancer and DVT in the past, presented to the emergency room with a 1-week history of neck pain, shoulder pain, as well as shortness of breath, was found to have a right upper lobe mass with metastatic lesion to the right middle lobe, along with bilateral nodules, liver mets. The hospitalist was asked to admit the patient for evaluation of acute neck pain and shortness of breath. IMPRESSION: 1. New diagnosis of right upper lobe lung cancer with metastatic lesions to the left lung as well as the liver, possibly bone mets. Patient had been a previous smoker about 25 years ago and has since quit. He is scheduled for a CT-guided biopsy of the right upper lobe mass. Therefore, will obtain a bone scan in the morning, x-ray of the cervical spine today. The patient does not have any neuropathy at this time to require MRI of the cervical spine as there is no neurological complaint. Will obtain a dedicated CT abdomen and pelvis in the morning regarding the liver mets to rule out any ascites. Patient currently has no fluid wave on examination. Due to shortness of breath, we are concerned as well with malignant pleural effusion. Therefore, an echocardiogram will be obtained. spoke with Dr. Evita Mcguire, [facility] education technician, who will be leaving [facility] on Sunday, and recommended having pt be seen by a colleague who will remain at [facility] for continuity of care. no urgent need for [facility] tonight as pt still needs biopsy and staging. re-consult [facility] after path is available. 2. Hypertension, controlling. Holding parameters on his blood pressure medications. 3. Dyslipidemia. May resume home medications. 4. Morbid obesity. BMI of 35. Probable obstructive sleep apnea (MILGAROS). 5. History of bronchiectasis. Nebulizer treatment as needed, Acapella and supplemental oxygen to keep saturations 88-92%. No wheezing on examination. 6. Prior history of smoking; quit 25 years ago. 7. History of DVT. Check venous Dopplers bilateral lower extremities. 8. Acute on chronic renal failure, stage III. Currently fluid overloaded. Will give one dose of Lasix and monitor for worsening renal function. May need to hold Lasix in the morning. Will repeat a metabolic panel in the morning. 9. Abnormal liver function test. Most likely due to liver metastasis. Will obtain a dedicated CT abdomen and pelvis in the morning, medical oncology consult. 10. Type 2 diabetes. Resumed on long-acting insulin. Will continue on sliding scale, consistent carbohydrate diet. 11. Neck pain. Obtain x-ray of the neck and bone scan in the morning, K-pad and may need radiation. Oncology consult once patient's diagnosis is confirmed as metastatic lung cancer.no neurological issues to warrant stat mri cspine. codestatus: dnr dni MTDD
[2019-08-12] MEDS: oxyCODONE 10 MG CR TAB PO SCH (20:08)
[2019-08-12] MEDS ORDERED: ATORVASTATIN 10 MG TAB PO SCH (21:00)
[2019-08-12] MEDS ORDERED: HumaLOG INSULIN (NovoLOG) PER UNIT SC SCH (21:00)
--- NOTE | 2019-08-12 21:01 | REPVR ---
PROCEDURE INFORMATION: Exam: US Duplex Lower Extremity Veins, Bilateral Exam date and time: 08/12/2019 8:52 PM Age: 79 years old Clinical indication: Edema, localized; Lower extremity, bilateral; Additional info: B/l le edema R/O dvt TECHNIQUE: Imaging protocol: Real-time duplex ultrasound of the extremities with 2-D clarke scale, color Doppler flow and spectral waveform analysis with image documentation. Complete exam focused on the bilateral lower extremity veins. COMPARISON: US Duplex, Ext LOWER veins, bilat 07/12/2018 4:02 PM FINDINGS: Right deep veins: Unremarkable. The common femoral, femoral, proximal profunda femoral and popliteal veins are patent without thrombus. Normal Doppler waveforms. Normal compressibility and/or augmentation response. Right superficial veins: Saphenofemoral junction is patent without thrombus. Left deep veins: Unremarkable. The common femoral, femoral, proximal profunda femoral and popliteal veins are patent without thrombus. Normal Doppler waveforms. Normal compressibility and/or augmentation response. Left superficial veins: Saphenofemoral junction is patent without thrombus. Lymph nodes: Prominent lymph node in the right groin measures 3.6 x 0.8 x 2.3 cm with benign architecture. Soft tissues: Bilateral leg edema. IMPRESSION: Bilateral leg edema. No DVT. Electronically signed by: Chao Mckeon On 08/12/2019 21:00:42 PM
--- NOTE | 2019-08-12 21:20 | ECGEPIP ---
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
[2019-08-12] MEDS: ACETAMINOPHEN 500 MG TAB PO SCH (21:30)
[2019-08-12 22:00] VITALS: BP 130/58
[2019-08-12] MEDS: ALBUTEROL 90 MCG/ACT 8GM HFA INHALER INH PRN (22:03)
[2019-08-12 22:30] VITALS: BP 122/59
[2019-08-12] MEDS ORDERED: NITROGLYCERIN 0.4 MG SUBL TABLET SL STA (22:43)
[2019-08-12] MEDS ORDERED: NITROGLYCERIN 0.4 MG SUBL TABLET SL PRN (22:45)
[2019-08-12 23:05] VITALS: BP 122/59
[2019-08-12] MEDS ORDERED: NS 1,000 ML IV SCH (23:15)
[2019-08-12] MEDS: D5W/0.45% SODIUM CHLORIDE 1,000 ML IV SCH (23:33)
[2019-08-12 23:56] LABS: CK-MB VALUE MASS 3.1 NG/ML (<3.6); MB/CK RELATIVE INDEX 1.9 (< OR =4); TROPONIN I 0.02 NG/ML (< 0.10)
[2019-08-13 01:04] VITALS: BP 123/60
[2019-08-13] MEDS: ACETAMINOPHEN 500 MG TAB PO SCH ×3 (05:30→22:07)
[2019-08-13 06:00] VITALS: BP 119/65
[2019-08-13 06:04] LABS: BASO % 0.4 % (0.0-1.0); EOS # 0.1 10^3/uL (0.0-0.5); EOS % 1.6 % (0.0-3.0); HEMATOCRIT 31.4 % (42.0-52.0); HEMOGLOBIN 9.9 g/dl (13.5-17.5); LYMPH % 13.6 % (24.0-44.0); MEAN CORPUSCULAR HEMOGLOBIN 28.5 pg (27.0-33.0); MEAN CORPUSCULAR HGB CONC 31.5 g/dl (32.0-36.5); MEAN CORPUSCULAR VOLUME 90.5 fl (80.0-96.0); MONO # 0.8 10^3/uL (0.0-0.8); MONO % 10.7 % (0.0-5.0); NEUTROPHILS # 5.5 10^3/uL (1.5-8.5); NEUTROPHILS % 72.2 % (36.0-66.0); PLATELET COUNT, AUTOMATED 345 10^3/uL (150-450); RED BLOOD COUNT 3.47 10^6/uL (4.30-6.10); WHITE BLOOD COUNT 7.6 10^3/uL (4.0-10.0)
--- NOTE | 2019-08-13 06:04 | ECGEPIP ---
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
[2019-08-13 06:15] LABS: INR 1.38; PROTHROMBIN TIME 16.7 SECONDS (11.8-14.0)
[2019-08-13 06:28] LABS: CK-MB VALUE MASS 3.5 NG/ML (<3.6); CPK CREATINE PHOSPHOKINASE 196 U/L (39-308); MB/CK RELATIVE INDEX 1.79 (< OR =4); TROPONIN I < 0.02 NG/ML (< 0.10)
[2019-08-13 06:30] LABS: ALBUMIN 2.1 GM/DL (3.2-5.2); BILIRUBIN,TOTAL 1.1 MG/DL (0.2-1.0); CALCIUM LEVEL 9.2 MG/DL (8.8-10.2); CREATININE FOR GFR 2.27 MG/DL (0.70-1.30); GLOMERULAR FILTRATION RATE 29.9 (>42); POTASSIUM SERUM 4.1 MEQ/L (3.5-5.1); TOTAL PROTEIN 5.9 GM/DL (6.4-8.2)
--- NOTE | 2019-08-13 07:28 | REP ---
CERVICAL SPINE, AP AND LATERAL: Three AP and lateral views of cervical spine performed. No gross fracture is seen. There is minor anterior listhesis of C3 on C4. There is no prevertebral soft tissue swelling. There are large bridging osteophytes anteriorly between the C4 and C7 levels with moderately severe disc space narrowing at all of the intervening disc spaces and subchondral sclerosis. There is diffuse spurring and sclerosis at the posterior facet joints. IMPRESSION: Significant degenerative changes, particularly at C4-5, C5-6, and C6-7 levels. No gross fracture. If there is clinical concern for fracture, then CT would be recommended. Electronically Signed by Mark Blas MD 08/14/2019 09:18 A
[2019-08-13] MEDS ORDERED: LEVEMIR (INSULIN DETEMIR) 1 UNITS/0.01ML SC SCH (09:00)
[2019-08-13] MEDS ORDERED: FENOFIBRATE 145 MG TAB (TRICOR) PO SCH (09:00)
[2019-08-13] MEDS: D5W/0.45% SODIUM CHLORIDE 1,000 ML IV SCH (09:03)
[2019-08-13] MEDS: HumaLOG INSULIN (NovoLOG) PER UNIT SC SCH ×3 (09:33→20:12)
[2019-08-13] MEDS: oxyCODONE 10 MG CR TAB PO SCH ×2 (11:14→20:14)
[2019-08-13] MEDS: FUROSEMIDE 20 MG TAB PO SCH (11:14)
--- NOTE | 2019-08-13 12:19 | REP ---
REASON FOR EXAM: History of lung cancer, assess for metastatic liver disease. The lact of intravenous contrast significantly decreases the sensitively of the exam particularly when assessing for metastatic disease. The latest prior examination 09/27/2018, a contrast enhanced examination was reviewed. The lung bases show curvilinear opacities consistent with subsegmental atelectatic changes. These have developed since the last CT of the chest of 08/12/2019. Once again, there is a large right lung mass. Better imaged and described on that prior chest CT. Limited evaluation of the liver shows multiple low density masses throughout the hepatic parenchyma and representing a change from the prior abdominal CT of 09/27/2018. The spleen, pancreas, adrenal glands, and kidneys are essentially unchanged although seen in a limited fashion. There is periaortic adenopathy which has developed since the last exam. There is no evidence of free fluid or free air in the abdomen or pelvis. There are multiple gas and fluid-filled small bowel loops in the abdomen and pelvis. The appearance of these is unchanged from the prior exam. The gallbladder is stable. Bone window technique throughout the exam shows multiple lytic lesions in multiple thoracic and lumbar vertebral bodies which represent a change from the prior exam. IMPRESSION: 1. Evidence of hepatic and skeletal metastatic disease. 2. Evidence of a small bowel ileus. 3. Para-aortic adenopathy. 4. Other findings as described above. Electronically Signed by Javier Werner DO 08/13/2019 05:20 P
[2019-08-13] MEDS: MOM 30ML SUSPENSION UDC PO PRN (13:37)
[2019-08-13] MEDS: MORPHINE 10 MG/ML 1ML VIAL (J2270) IV PRN (13:37)
[2019-08-13 14:00] VITALS: BP 120/84
--- NOTE | 2019-08-13 15:06 | CR.PDOC ---
General Date of Consultation: Aug 13, 2019 Referring Provider: GEORGE SUE MD Consultation ONCOLOGY REASON FOR CONSULTATION/CHIEF COMPLAINT: Clinical picture consistent with right upper lobe lung cancer with lymph node, lung, bone and liver metastasis HISTORY OF PRESENT ILLNESS: Thank you kindly for consulting us on this 79-year-old gentleman. 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 Patient also has a history of deep vein thrombosis of lower extremity. Patient presented to emergency room with a one-week history of worsening shortness of breath and pain in the upper neck and cervical region. Patient reported the pain was achy without improvement with pain medication. CT of the chest was performed in the emergency room which revealed a right upper lobe mass extending into the right hilar measuring approximately 7.5 x 7 x 6.6 cm. There was an additional satellite nodule in the right middle lobe, which measured approximately 1.9 cm. There are other innumerable 2 to 5 mm sized nodules spread through all lung abrams bilaterally. CT of the abdomen and pelvis revealed significant number of masses in his liver and evidence of skeletal metastasis. Patient was also seen in [place] by oncology at the [facility]. Patient had CT scan at that time. The believes it was of the chest abdomen pelvis. Patient was found to have abnormal lymphadenopathy in the chest "near the heart". At the time is recommended to watch closely and patient decided on no further action. PAST MEDICAL/SURGICAL HISTORY: Deyvi level IV, stage II malignant melanoma right upper extremity Hypertension. Hyperlipidemia. Diabetes. Morbid obesity, body mass index (BMI) of 35.8. Diverticulitis with perforated diverticulum requiring bowel resection in 2009. Basal cell carcinoma removal 2018 in [place]. Carpal tunnel of the right hand. DVT left lower leg. FAMILY HISTORY: Mother age 79 with complications of diabetes. Two brothers, one of coronary artery disease and myocardial infarction (MT). Two sisters, one living, one with diabetes. He has five children, three are living, two . One of coronary artery disease, another of chronic obstructive pulmonary disease (COPD) at the age of 55 and 57 respectively. Father of diabetes at the age of 78. Mother at the age of 79 due to diabetes as well. SOCIAL HISTORY: Lives with . Patient is DO NOT RESUSCITATE, DO NOT INTUBATE. He drinks alcohol. 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 ALLERGIES: Please see below. HOME MEDICATIONS: Please see below. REVIEW OF SYSTEMS: CONSTITUTIONAL: Ongoing history of 30 to thrive with increased shortness of breath and weakness HEENT: No dysphagia CARDIOVASCULAR: No chest pain RESPIRATORY: Marked increased shortness of breath GENITOURINARY: Decreased urination. MUSCULOSKELETAL: Generalized weakness GASTROINTESTINAL: Denies melena. SKIN: No new lesions NEUROLOGICAL: Generalized lower extremity weakness above upper extremity PSYCHIATRIC: Depressed. ENDOCRINE: Some cold intolerance HEMATOLOGIC/LYMPHATIC: Denies any new lymphadenopathy. ALLERGIC/IMMUNOLOGIC: Denies. PHYSICAL EXAMINATION: VITAL SIGNS: Please see below. GENERAL APPEARANCE: Awake, alert in mild distress HEENT: Oxygen via Nasal cannula noted. No thrush RESPIRATORY: Abnormal exam with decreased breath sounds noted due to body habitus the bases and sent by his alert crackles with decreased breath sounds at the right temporal lungs are months. CARDIOVASCULAR: Distant heart beat tachycardic without murmur. ABDOMEN: Morbidly obese no palpable masses. EXTREMITIES: 1+ edema bilateral lower extremity NEUROLOGICAL: No focal neurologic deficit gait not assessed PSYCHIATRIC: Awake responsive to questions. LABORATORY DATA: Please see below. ASSESSMENT/PLAN: Clinical picture consistent with large tumor burden right upper lung carcinoma with metastatic extension to the hilar lymph node, bilateral metastatic extension in the lungs, liver metastasis, skeletal metastasis. Point of clarification, patient's malignant melanoma was a stage II, not a stage IV RECOMMENDATIONS Prolonged discussion today regarding goals of care Patient and discussed with attending the option for comfort measures only That is a reasonable option After prolonged discussion with the patient and with the hospitalist team present in the room, the patient and have decided to hold off on comfort measures only and proceed with biopsy. They understand a biopsy that does not guarantee us finding the diagnosis and does not commit patient for any palliative therapy. They are aware of the risk of biopsy which can clinically bleeding, infection Given that he has liver metastasis, it may be safer to proceed with a liver biopsy as an ultrasound can be used and the biopsy can be done" real-time". 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 In addition, general principle is that we go after a metastatic site when conf irming a diagnosis. Recommend brain MRI to assess for metastatic disease in the brain. Can proceed with either an inpatient or outpatient bone scan pending clinical scenario Patient does not require PET/CT scan as it will not change treatment decisions or yield any additional information at this time. Patient's was informed of fact that PET/CT scan will not be useful at this particular juncture 50 minutes on care with more than 50% of time counseling and coordination discussing with hospitalist team Vital Signs/I&O Vital Signs Date Time Temp Pulse Resp B/P (MAP) Pulse Ox O2 Delivery O2 Flow Rate FiO2 08/13/19 14:01 32 08/13/19 13:37 93 Nasal Cannula 2.0 08/13/19 06:00 96.3 100 119/65 (83) I&O- Last 24 Hours up to 6 AM 08/13/19 06:00 Intake Total 3136 ml Output Total 1700 ml Balance 1436 ml Laboratory Data Labs 24H Laboratory Tests 2 08/12/19 17:08: Bedside Glucose (Misc Panel) 55L 08/12/19 17:15: Bedside Glucose (Misc Panel) 45L 08/12/19 17:39: Bedside Glucose (Misc Panel) 82L 08/12/19 18:06: Bedside Glucose Confirm (Misc) 81 08/12/19 21:16: Bedside Glucose (Misc Panel) 75L 08/12/19 22:21: Bedside Glucose (Misc Panel) 63L 08/12/19 23:10: Bedside Glucose (Misc Panel) 68L 08/12/19 23:20: Total Creatine Kinase 163, Creatine Kinase MB 3.1, Creatine Kinase MB Relative Index 1.90, Troponin I 0.02 08/13/19 00:21: Bedside Glucose (Misc Panel) 84 08/13/19 01:57: Bedside Glucose (Misc Panel) 85 08/13/19 05:21: Bedside Glucose (Misc Panel) 77L 08/13/19 05:49: Immature Granulocyte % (Auto) 1.5, Neutrophils (%) (Auto) 72.2H, Lymphocytes (%) (Auto) 13.6L, Monocytes (%) (Auto) 10.7H, Eosinophils (%) (Auto) 1.6, Basophils (%) (Auto) 0.4, Neutrophils # (Auto) 5.5, Lymphocytes # (Auto) 1.0L, Monocytes # (Auto) 0.8, Eosinophils # (Auto) 0.1, Basophils # (Auto) 0.0, Nucleated Red Blood Cells % (auto) 0.0, Total Creatine Kinase 196, Creatine Kinase MB 3.5, Creatine Kinase MB Relative Index 1.79, Troponin I < 0.02 08/13/19 05:50: Prothrombin Time 16.7H, Prothromb Time International Ratio 1.38, Activated Partial Thromboplast Time 40.0H, Anion Gap 6L, Glomerular Filtration Rate 29.9L, Calcium Level 9.2, Total Bilirubin 1.1H, Aspartate Amino Transf (AST/SGOT) 230H, Alanine Aminotransferase (ALT/SGPT) 118H, Alkaline Phosphatase 279H, Total Protein 5.9L, Albumin 2.1L, Albumin/Globulin Ratio 0.6 08/13/19 11:26: Bedside Glucose (Misc Panel) 75L CBC/BMP Laboratory Tests 08/13/19 05:49 08/13/19 05:50 Microbiology Microbiology 08/12/19 Urine Culture - Final, Complete 08/12/19 Blood Culture - Preliminary, Resulted No growth after 24 hours . All specim... 08/12/19 Respiratory Virus Panel (PCR) (SAMMY) - Final, Complete 08/12/19 Blood Culture - Preliminary, Resulted No growth after 24 hours . All specim... Allergies Coded Allergies: No Known Drug Allergies (Verified Allergy, Unknown, 07/12/18) Home Medications Scheduled Aspirin (Aspirin EC) 81 Mg Tab, 81 MG PO QHS, (Reported) Atorvastatin Calcium (Atorvastatin Calcium) 10 Mg Tablet, 10 MG PO QHS, (Reported) Cyanocobalamin (Cyanocobalamin Injection) 1,000 Mcg/1 Ml Inj, 1,000 MCG IM QMONTH, (Reported) Fenofibrate Nanocrystallized (Tricor) 145 Mg Tab, 145 MG PO DAILY, (Reported) Furosemide (Furosemide) 20 Mg Tablet, 60 MG PO DAILY, (Reported) Glipizide (Glipizide) 10 Mg Tab, 10 MG PO BID, (Reported) 2ND DOSE WITH DINNER Insulin Glargine,Hum.rec.anlog (Lantus Solostar) 100 Unit/1 Ml Insuln.pen, 50 UNIT SC QAM, (Reported) Liraglutide (Victoza 3-Colt) 0.6 Mg/0.1 Ml Pen.injctr, 1.2 MG SC DAILY, (Reported) Metformin HCl (Metformin HCl ER) 500 Mg Tab.er.24h, 500 MG PO QHS, (Reported) Valsartan (Valsartan) 80 Mg Tab, 80 MG PO DAILY, (Reported) Scheduled PRN Albuterol Sulfate (Albuterol Sulfate Hfa) 8.5 Gm Hfa.aer.ad, 2 PUFFS INH Q4H PRN for SOB/WHEEZING, (Reported) NABIL BLACKBURN MD Aug 13, 2019 15:06
[2019-08-13] MEDS ORDERED: LORazepam 1 MG TAB PO PRN (15:30)
[2019-08-13] MEDS ORDERED: MORPHINE 2 MG/ML 1ML VIAL (J2270) IV PRN (15:30)
[2019-08-13] MEDS ORDERED: LORazepam 2 MG/ML VIAL IV PRN (15:30)
[2019-08-13] MEDS ORDERED: SCOPOLAMINE 1MG TRANSDERMAL PATCH TOP PRN (15:30)
--- NOTE | 2019-08-13 16:44 | IPNPDOC ---
Text Note Date of Service The patient was seen on 08/13/19. NOTE Mr. Espinoza was seen this AM and reported continued pain and discomfort in his neck and chest. He also stated he was still feeling short of breathe although he mentioned that he had just recently returned from radiology and that his dyspnea worsened with the movement. He also mentioned that his stomach had become increasingly distended overnight. We were present with the patient along with hematology/oncology while his options were discussed and the patient agreed to plan for liver biopsy and brain MRI as soon as possible. He is open to discussing further treatment options and prognosis once the cancer has been identified. He does mention that he had a concerning chest radiograph of some kind in [place] and that he had seen a oncologist for it but was unable to provide more details. Physical Exam: Vitals: See below General: Laying in bed in with mild SOB in mild distress HEENT: Atraumatic and normocephalic. No scleral icterus or lymphadenopathy palpated. No JVD. EOMI CV: Muffled heart sounds. Tachycardic. Regular rhythm. No murmurs, knocks, gallops noted Respiratory: Tachypneic. Coarse breath sounds noted throughout lung exam. No wheezing, rales, rhonchi noted. Abdomen: Distended, obese abdomen, tender in all quadrants L > R. No bruising or discolorations noted. Extremities: symmetric +1 pitting edema from ankles B/L to superior tibias, Good perfusion throughout all extremities. Stasis dermatitis on LE B/L. Assessment and Plan: This is a 79 year old male with a PMHx significant for Stage II melanoma, DVT in lower left leg who presented to [facility] ER with severe SOB and was found to have a large right upper lobe lung mass consistent with neoplasm with extensive apparent metastasis to the liver, thoracic lymph nodes, and multiple vertebral segments. #Metastatic neoplasm of uncertain origin: Likely lung primary -Large primary lesion seen in R lung with multiple smaller lesions throughout liver and spine -US guided liver biopsy order placed - will help finalize diagnosis and staging -Brain MRI w/ contrast ordered - assess for brain mets -Hematology/Oncology has been consulted and their input and assistance is greatly appreciated -Pending results of liver bx and brain MRI, the patient and his family will discuss prognosis/treatment options with oncology and hospital team and move forward from there -Records requests will be placed at patient's primary care office in [place] as well as the [facility] system #Transaminitis: -Likely 2/2 extensive metastatic disease throughout liver -Hepatomegaly present on CT, likely due to large tumor burden with compensatory hepatic changes/mild liver congestion -Plan will be to monitor until patient makes a decision regarding if he wants treatment for his cancer or not -Pt is experiencing mild generalized tenderness to palpation in his abdomen and appears distended -Albumin 2.1 with mild increase in PT and APTT indicating liver dysfunction likely due to mets as stated above -UA shows 4+ urobilinogen indicating excessive bilirubin likely 2/2 obstructive liver mets #Acute on chronic stage III chronic kidney disease: -Creatinine 2.27 and BUN 56 indicating likely prerenal etiology -Plan to maintain appropriate fluid balance and monitor with serial BMPs if patient chooses to continue treatment following liver bx and brain MRI -Hold IVF and lasix at this time and reassess kidney function tomorrow #Asymptomatic UTI -UA shows +1 leukocyte esterase and 1+ bacteria -No further treatment required especially given patients current reluctance for medical management pending his liver bx and brain MRI -Monitor for dysuria/polyuria/change in urine color ect #Dyspnea, worse on exertion: -PaO2 in low 90s on 3L nc -tachypneic at rest, worse with exertion -Restart B-agonist nebulizer PRN, acapella and supplemental o2 #Dyslipidemia: -Restart Atorvastatin 10 mg QHS PO -Restart fenofibrate 145 mg QD PO #HTN: -Currently normotensive, possibly innapropriately so given patients hx of HTN and apparently mildly fluid overloaded state -Possibly related to his current narcotic pain medication/proper control prior to his admission -Continue to monitor #Patient was septic on admission, with possible post obstructive pneumonia. Very poor prognosis. #DVT Prophylaxis: -Restart Enoxaparin Sodium 40 mg QD SC Disposition: Plan for liver bx and brain MRI to finalize cancer diagnosis and explore treatment options. 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 If treatment is pursued, the patient has expressed interest in possibly being placed at [facility] or a similar institution for part/all of his treatment duration citing his inability to mobilize himself around the home. Attending attestation: Patient independently seen and evaluated, agree with plan. VS,Fishbone, I+O VS, Fishbone, I+O Laboratory Tests 08/13/19 05:49 08/13/19 05:50 Vital Signs Date Time Temp Pulse Resp B/P (MAP) Pulse Ox O2 Delivery O2 Flow Rate FiO2 08/13/19 15:52 26 08/13/19 14:00 98.3 100 120/84 (96) 94 Nasal Cannula 2.0 I&O- Last 24 Hours up to 6 AM 08/13/19 06:00 Intake Total 3136 ml Output Total 1700 ml Balance 1436 ml GME ATTESTATION GME ATTESTATION My faculty preceptor for this patient encounter was physically present during the encounter and was fully available. All aspects of the patient interview, examination, medical decision making process, and medical care plan development were reviewed and approved by the faculty preceptor. The faculty preceptor is aware and concurs with the plan as stated in the body of this note and will attest to such by his/her cosignature. GME ATTESTATION GME ATTESTATION My faculty preceptor for this patient encounter was physically present during the encounter and was fully available. All aspects of the patient interview, examination, medical decision making process, and medical care plan development were reviewed and approved by the faculty preceptor. The faculty preceptor is aware and concurs with the plan as stated in the body of this note and will attest to such by his/her cosignature. JOHN ENCISO OMS-3 Aug 13, 2019 16:42 OSMANI RICHARDSON MD Aug 16, 2019 10:34
[2019-08-13] MEDS ORDERED: GLUCOSE 4GM CHEW TABLET PO PRN (18:45)
[2019-08-13] MEDS ORDERED: GLUCAGON INJ 1MG VIAL SC PRN (18:45)
[2019-08-13] MEDS ORDERED: DEXTROSE 50% 50 ML SYRINGE IV PRN (18:45)
[2019-08-13] MEDS: ATORVASTATIN 10 MG TAB PO SCH (20:13)
[2019-08-13] MEDS: ALBUTEROL 90 MCG/ACT 8GM HFA INHALER INH PRN (20:21)
[2019-08-13 22:00] VITALS: BP 107/62
[2019-08-13] MEDS: MORPHINE 2 MG/ML 1ML VIAL (J2270) IV PRN (22:09)
[2019-08-13 22:19] VITALS: BP 107/55
[2019-08-14] MEDS: ACETAMINOPHEN 500 MG TAB PO SCH ×3 (05:14→22:10)
[2019-08-14] MEDS: MOM 30ML SUSPENSION UDC PO PRN (05:16)
[2019-08-14 06:00] VITALS: BP 147/60
[2019-08-14 06:34] LABS: HEMATOCRIT 31.3 % (42.0-52.0); HEMOGLOBIN 9.7 g/dl (13.5-17.5); MEAN CORPUSCULAR VOLUME 90.2 fl (80.0-96.0); PLATELET COUNT, AUTOMATED 366 10^3/uL (150-450); RED BLOOD COUNT 3.47 10^6/uL (4.30-6.10); WHITE BLOOD COUNT 6.2 10^3/uL (4.0-10.0)
[2019-08-14 06:57] LABS: ALBUMIN 1.8 GM/DL (3.2-5.2); CALCIUM LEVEL 9.7 MG/DL (8.8-10.2); CREATININE FOR GFR 2.71 MG/DL (0.70-1.30); GLOMERULAR FILTRATION RATE 24.3 (>42); POTASSIUM SERUM 4.3 MEQ/L (3.5-5.1); TOTAL PROTEIN 5.6 GM/DL (6.4-8.2)
[2019-08-14] MEDS: HumaLOG INSULIN (NovoLOG) PER UNIT SC SCH ×4 (07:30→21:00)
[2019-08-14] MEDS ORDERED: ENOXAPARIN 40MG/0.4ML SYRINGE (J1650 PER 10MG) SC SCH (09:00)
[2019-08-14] MEDS ORDERED: FENOFIBRATE 145 MG TAB (TRICOR) PO SCH (09:00)
[2019-08-14] MEDS: oxyCODONE 10 MG CR TAB PO SCH ×2 (09:32→21:09)
[2019-08-14] MEDS: FUROSEMIDE 20 MG TAB PO SCH (09:32)
[2019-08-14] MEDS: NYSTATIN 100,000 UNITS/GM TOPICAL PWD 15 GM TOP SCH ×2 (09:33→21:09)
[2019-08-14 14:00] VITALS: BP 110/70
--- NOTE | 2019-08-14 19:13 | IPNPDOC ---
Text Note Date of Service The patient was seen on 08/14/19. NOTE Mr. Espinoza was seen this AM and reported continued SOB, abdominal distension and neck/back pain. H also reports that earlier this morning he decided against tgoing forward with the liver biopsy due to concerns about his dyspnea when supine. He Met with his again today and together with both the oncology and medical teams present he decided to try going forward with the biopsy again tomorrow. Both he and his were informed of the extremely limited time, if indeed any time is available currently, he has to get the biopsy and start treatment before the cancer has limited his functional capacity to the point where therapy is non-viable. Finally he reports decreased appetite. Physical Exam: Vitals: See below General: Laying in bed in with mild SOB in mild distress HEENT: Atraumatic and normocephalic. No scleral icterus or lymphadenopathy palpated. No JVD. EOMI CV: Muffled heart sounds. Tachycardic. Regular rhythm. No murmurs, knocks, gallops noted Respiratory: Tachypneic. Coarse breath sounds noted throughout lung exam. No wheezing, rales, rhonchi noted. Abdomen: Distended, obese abdomen, tender in all quadrants L > R. No bruising or discolorations noted. Extremities: symmetric +1 pitting edema from ankles B/L to superior tibias, Good perfusion throughout all extremities. Stasis dermatitis on LE B/L. Assessment and Plan: This is a 79 year old male with a PMHx significant for Stage II melanoma, DVT in lower left leg who presented to [facility] ER with severe SOB and was found to have a large right upper lobe lung mass consistent with neoplasm with extensive apparent metastasis to the liver, thoracic lymph nodes, and multiple vertebral segments. #Metastatic neoplasm of uncertain origin: Likely lung primary -Large primary lesion seen in R lung with multiple smaller lesions throughout liver and spine -US guided liver biopsy order placed - will help finalize diagnosis and staging - CANCELLED this AM but will be reordered for tomorrow morning -Brain MRI w/ contrast CANCELLED due to patient concerns about dyspea when supine as well as claustrophobia -Hematology/Oncology has been consulted and their input and assistance is greatly appreciated -Pending results of liver bx and brain MRI, the patient and his family will discuss prognosis/treatment options with oncology and hospital team and move forward from there #Transaminitis: -Likely 2/2 extensive metastatic disease throughout liver -Hepatomegaly present on CT, likely due to large tumor burden with compensatory hepatic changes/mild liver congestion -Plan will be to monitor until patient makes a decision regarding if he wants treatment for his cancer or not -Pt is experiencing mild generalized tenderness to palpation in his abdomen and appears distended -Albumin 1.8 with mild increase in PT and APTT indicating liver dysfunction likely due to mets as stated above -UA shows 4+ urobilinogen indicating excessive bilirubin likely 2/2 obstructive liver mets #Acute on chronic stage III chronic kidney disease: -Creatinine 2.71 and BUN 71 indicating likely prerenal etiology -Plan to maintain appropriate fluid balance and monitor with serial BMPs if patient chooses to continue treatment following liver bx and brain MRI -Creatinine,BUN, and GFR continue to worsen likely 2/2 3rd spacing of fluid and poor kidney perfusion. -Continue lasix for the time being, and hold if creatinine continues to worsen tomorrow #Asymptomatic UTI -UA shows +1 leukocyte esterase and 1+ bacteria -No further treatment required especially given patients current reluctance for medical management pending his liver bx and brain MRI -Monitor for dysuria/polyuria/change in urine color ect #Dyspnea, worse on exertion: -PaO2 in low 90s on 3L nc -tachypneic at rest, worse with exertion -Continue B-agonist nebulizer PRN, acapella and supplemental o2 #Dyslipidemia: -Continue Atorvastatin 10 mg QHS PO -Continue fenofibrate 145 mg QD PO #HTN: -Currently normotensive, possibly innapropriately so given patients hx of HTN and apparently mildly fluid overloaded state -Possibly related to his current narcotic pain medication/proper control prior to his admission -Continue to monitor #Patient was septic on admission, with possible post obstructive pneumonia. Very poor prognosis. #DVT Prophylaxis: -ContinueEnoxaparin Sodium 40 mg QD SC Disposition: Plan for liver bx and brain MRI to finalize cancer diagnosis and explore treatment options. 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 If treatment is pursued, the patient has expressed interest in possibly being placed at [facility] or a similar institution for part/all of his treatment duration citing his inability to mobilize himself around the home. Attending attestation: Patient independently seen and evaluated, agree with plan. VS,Rut, I+O VS, Malathie, I+O Laboratory Tests 08/14/19 06:01 Vital Signs Date Time Temp Pulse Resp B/P (MAP) Pulse Ox O2 Delivery O2 Flow Rate FiO2 08/14/19 14:00 97.5 102 18 110/70 (83) 93 Nasal Cannula 2.0 I&O- Last 24 Hours up to 6 AM 08/14/19 06:00 Intake Total 1290 ml Output Total 700 ml Balance 590 ml JOHN ENCISO OMS-3 Aug 14, 2019 19:13 OSMANI RICHARDSON MD Aug 16, 2019 10:39
--- NOTE | 2019-08-14 20:23 | IPNPDOC ---
Date Seen The patient was seen on 08/14/19. Progress Note Oncology We had a a family meeting with the patient, his and in the presence of the hospitalist team. Patient continues to do poorly Nearly bedridden Has some physical therapy and was able to stand but physical therapy was stopped short because of hypoxia with an O2 sat of 75% Patient refused to have liver biopsy performed today I explained very clearly and bluntly that the window of opportunity for even receiving palliative therapy is closing Given rapid tumor growth, we have a high pretest probability for this being a small cell lung carcinoma. If that is the case, and the chance of response to chemotherapy as close to 100% and may be worth pursuing. This is the only disease where we would treat someone if they were intubated due to disease causing hypoxemia due to tumor burden. Patient is overly concerned about laying flat We have open discussion regarding this Quite appropriate option is comfort measures only Patient has liver dysfunction already without pacheco liver failure I talked about the fact that patient is actively dying and that will be peaceful as he will likely of complications of liver failure The decision tree is either he proceeds with biopsy of the liver tomorrow or we proceed with comfort measures only Is no guarantee that a biopsy will result in us even offering palliative chemotherapy Patient may not want any therapy as well I told him it would be okay if he doesn't wish to pursue any therapy and that we would make sure that he is comfortable for the little time he has left Without treatment, prognosis absolutely dismal If we proceed with comfort measures only would recommend transfer to inpatient hospice Expected survival would be 2 weeks or less without treatment Nurses present also for family meeting Patient clearly consented again for liver biopsy to see if we can obtain a diagnosis. 35 minutes on care VS, I&O, 24H, Fishbone Vital Signs/I&O Vital Signs Date Time Temp Pulse Resp B/P (MAP) Pulse Ox O2 Delivery O2 Flow Rate FiO2 08/14/19 14:00 97.5 102 18 110/70 (83) 93 Nasal Cannula 2.0 I&O- Last 24 Hours up to 6 AM 08/14/19 05:59 Intake Total 1890 ml Output Total 900 ml Balance 990 ml Laboratory Data 24H LABS Laboratory Tests 2 08/13/19 22:15: Bedside Glucose (Misc Panel) 97 08/14/19 00:27: Bedside Glucose (Misc Panel) 94 08/14/19 06:01: Nucleated Red Blood Cells % (auto) 0.0, Anion Gap 12, Glomerular Filtration Rate 24.3L, Calcium Level 9.7, Total Bilirubin 1.0, Aspartate Amino Transf (AST/SGOT) 288H, Alanine Aminotransferase (ALT/SGPT) 155H, Alkaline Phosphatase 285H, Total Protein 5.6L, Albumin 1.8L, Albumin/Globulin Ratio 0.5 08/14/19 11:46: Bedside Glucose (Misc Panel) 159H 08/14/19 16:23: Bedside Glucose (Misc Panel) 177H CBC/BMP Laboratory Tests 08/14/19 06:01 Microbiology Microbiology 08/12/19 Urine Culture - Final, Complete 08/12/19 Blood Culture - Preliminary, Resulted No Growth after 48 hours. All Specime... 08/12/19 Respiratory Virus Panel (PCR) (SAMMY) - Final, Complete 08/12/19 Blood Culture - Preliminary, Resulted No Growth after 48 hours. All Specime... NABIL BLACKBURN MD Aug 14, 2019 20:23
[2019-08-14] MEDS: ATORVASTATIN 10 MG TAB PO SCH (21:07)
[2019-08-14 22:00] VITALS: BP 120/55
[2019-08-15] MEDS: oxyCODONE 5MG TAB PO PRN ×2 (01:17→08:18)
[2019-08-15 06:00] VITALS: BP 168/86
[2019-08-15] MEDS: ACETAMINOPHEN 500 MG TAB PO SCH ×3 (06:00→22:00)
[2019-08-15] MEDS: HumaLOG INSULIN (NovoLOG) PER UNIT SC SCH ×4 (07:30→21:00)
[2019-08-15 07:58] LABS: BASO % 0.5 % (0.0-1.0); EOS # 0.1 10^3/uL (0.0-0.5); EOS % 1.8 % (0.0-3.0); HEMATOCRIT 32.7 % (42.0-52.0); HEMOGLOBIN 10.3 g/dl (13.5-17.5); LYMPH # 0.7 10^3/uL (1.5-5.0); LYMPH % 12.4 % (24.0-44.0); MEAN CORPUSCULAR HEMOGLOBIN 28.3 pg (27.0-33.0); MEAN CORPUSCULAR HGB CONC 31.5 g/dl (32.0-36.5); MEAN CORPUSCULAR VOLUME 89.8 fl (80.0-96.0); MONO # 0.4 10^3/uL (0.0-0.8); MONO % 6.8 % (0.0-5.0); NEUTROPHILS # 4.3 10^3/uL (1.5-8.5); NEUTROPHILS % 76.3 % (36.0-66.0); PLATELET COUNT, AUTOMATED 405 10^3/uL (150-450); RED BLOOD COUNT 3.64 10^6/uL (4.30-6.10); WHITE BLOOD COUNT 5.6 10^3/uL (4.0-10.0)
[2019-08-15 08:23] LABS: ALBUMIN 1.9 GM/DL (3.2-5.2); BILIRUBIN,TOTAL 1.4 MG/DL (0.2-1.0); CALCIUM LEVEL 9.2 MG/DL (8.8-10.2); CREATININE FOR GFR 3.41 MG/DL (0.70-1.30); GLOMERULAR FILTRATION RATE 18.7 (>42); TOTAL PROTEIN 5.9 GM/DL (6.4-8.2)
[2019-08-15] MEDS: oxyCODONE 10 MG CR TAB PO SCH ×2 (09:00→21:00)
[2019-08-15] MEDS ORDERED: LORazepam 1 MG TAB PO ONE (09:00)
[2019-08-15] MEDS ORDERED: ENOXAPARIN 40MG/0.4ML SYRINGE (J1650 PER 10MG) SC SCH (09:00)
[2019-08-15] MEDS ORDERED: ENOXAPARIN 30MG/0.3ML SYRINGE (J1650 PER 10MG) SC SCH (09:00)
[2019-08-15] MEDS: NYSTATIN 100,000 UNITS/GM TOPICAL PWD 15 GM TOP SCH ×2 (09:30→22:00)
--- NOTE | 2019-08-15 10:54 | IPNPDOC ---
Text Note Date of Service The patient was seen on 08/15/19. NOTE Mr. Espinoza was seen this AM at bedside and stated no change in his condition except for abdominal discomfort and increased abdominal distension. He states that he is still going to attempt to get the biopsy done today and requested medication to ease his nerves. He denies any recent headache, Chest pain, cough, or changes in urine color/frequency. He states that he hasn't had a BM yet but that he has not been eating during his stay due to decreased appetite. Physical Exam: Vitals: See below General: Laying in bed in with mild SOB in mild distress HEENT: Atraumatic and normocephalic. No scleral icterus or lymphadenopathy palpated. No JVD. EOMI CV: Muffled heart sounds. Tachycardic. Regular rhythm. No murmurs, knocks, gallops noted Respiratory: Tachypneic. Coarse breath sounds noted throughout lung exam. No wheezing, rales, rhonchi noted. Abdomen: Distended, obese abdomen, tender in all quadrants L > R. No bruising or discolorations noted. Extremities: Symmetric +1 pitting edema from ankles B/L to superior tibias, Good perfusion throughout all extremities. Stasis dermatitis on LE B/L. Assessment and Plan: This is a 79 year old male with a PMHx significant for Stage II melanoma, DVT in lower left leg who presented to [facility] ER with severe SOB and was found to have a large right upper lobe lung mass consistent with neoplasm with extensive apparent metastasis to the liver, thoracic lymph nodes, and multiple vertebral segments. #Metastatic neoplasm of uncertain origin: Likely lung primary -Large primary lesion seen in R lung with multiple smaller lesions throughout liver and spine -US guided liver biopsy order placed - will help finalize diagnosis and staging - -Brain MRI w/ contrast CANCELLED due to patient concerns about dyspea when supine as well as claustrophobia -Hematology/Oncology has been consulted and their input and assistance is greatly appreciated -Pending results of liver bx, the patient and his family will discuss pro gnosis/treatment options with oncology and hospital team and move forward from there #Transaminitis: -Likely 2/2 extensive metastatic disease throughout liver -Hepatomegaly present on CT, likely due to large tumor burden with compensatory hepatic changes/mild liver congestion -Plan will be to monitor until patient makes a decision regarding if he wants treatment for his cancer or not -Pt is experiencing mild generalized tenderness to palpation in his abdomen and appears distended -Albumin 1.9 with mild increase in PT and APTT indicating liver dysfunction likely due to mets as stated above -ALP is also likely elevated due to bone destruction 2/2 bone mets -UA shows 4+ urobilinogen indicating excessive bilirubin likely 2/2 obstructive liver mets #Acute on chronic stage III chronic kidney disease: -Creatinine 3.41 and BUN 94 indicating likely prerenal etiology -Plan to maintain appropriate fluid balance and monitor with serial BMPs if patient chooses to continue treatment following liver bx -Creatinine,BUN, and GFR continue to worsen likely 2/2 3rd spacing of fluid and poor kidney perfusion. -Hold lasix #Asymptomatic UTI -UA shows +1 leukocyte esterase and 1+ bacteria -No further treatment required especially given patients current reluctance for medical management pending his liver bx and brain MRI -Monitor for dysuria/polyuria/change in urine color ect #Dyspnea, worse on exertion: -PaO2 in low 90s on 3L nc, 75% upon standing -tachypneic at rest, worse with exertion -Continue B-agonist nebulizer PRN, acapella and supplemental o2 #Pain control: -Pt has bony pain throughout his back rated at a 5/10 this morning prior to receiving his pain medication -Continue Oxycodone 10 mg PO BID w/ 5mg and 10mg available PRN -Continue Acetaminophen 1000mg Q8H PO #Dyslipidemia: -Due to transaminitis, will hold HLD meds until further time -Hold Atorvastatin 10 mg QHS PO -Hold fenofibrate 145 mg QD PO #HTN: -Currently normotensive, possibly innapropriately so given patients hx of HTN and apparently mildly fluid overloaded state -Possibly related to his current narcotic pain medication/proper control prior to his admission -Continue to monitor #Contipation: -Likely due to poor appetite -Start Senna and Magnesium hydroxide PRN #DVT Prophylaxis: -Continue Enoxaparin Sodium 40 mg QD SC #Patient was septic on admission, with possible post obstructive pneumonia. Very poor prognosis. Disposition: Plan for liver bx with possible brain MRI to finalize cancer diagnosis and explore treatment options. Patient may elect to return to [facility] status or may choose to pursue treatment for his disease upon these results. If treatment is pursued, the patient has expressed interest in possibly being placed at [facility] or a similar institution for part/all of his treatment duration citing his inability to mobilize himself around the home. Attending attestation: Patient independently seen and evaluated, agree with plan. Rut TANG, I+O Rut TANG, I+O Laboratory Tests 08/15/19 07:32 Vital Signs Date Time Temp Pulse Resp B/P (MAP) Pulse Ox O2 Delivery O2 Flow Rate FiO2 08/15/19 08:18 24 08/15/19 06:00 98.2 110 168/86 (113) 91 Nasal Cannula 2.0 I&O- Last 24 Hours up to 6 AM 08/15/19 06:00 Intake Total 1340 ml Output Total 220 ml Balance 1120 ml JOHN ENCISO OMS-3 Aug 15, 2019 10:54 OSMANI RICHARDSON MD Aug 16, 2019 10:40
[2019-08-15] MEDS ORDERED: LIDOCAINE 1% MDV 20ML VIAL As Ordered ONE (13:03)
[2019-08-15] MEDS ORDERED: SODIUM BICARBONATE 8.4% INJ 50MEQ 50 ML VIAL As Ordered ONE (13:15)
[2019-08-15 14:10] VITALS: BP 106/46
[2019-08-15 18:05] VITALS: BP 100/46
[2019-08-15 19:30] LABS: ABG BASE EXCESS -7.1 (-2.0-2.0); ABG HCO3 19.7 MEQ/L (22.0-26.0); ABG O2 SATURATION 92.4 % (95.0-99.0); ABG PARTIAL PRESSURE CO2 44.8 mmHg (35.0-45.0); ABG PARTIAL PRESSURE O2 72.9 mmHg (75.0-100.0); ABG STANDARD HCO3 18.6 MEQ/L (22.0-26.0); ABG TOTAL CO2 21.1 MEQ/L (23.0-31.0); ABG pH (ARTERIAL) 7.261 UNITS (7.350-7.450)
--- NOTE | 2019-08-15 19:41 | IPNPDOC ---
Text Note Date of Service The patient was seen on 08/15/19. NOTE TIME OF SERVICE 735PM Per d/w RN the patient is confused and unresponsive On my assessment he is lethargic, difficult to arouse, not following my commands. #Encephalopathy Possibly 2/2 sedation from meds (received ativan during liver bx today) vs Hypercarbia vs hyperammonemia Plan: transfer to PCU / f/u ammonia / f/u ABG ordered by day team / frequent neurochecks #SIRS tachycardia w tachypnea UOP about 100ml / bladder scan showed >400ml of urine Plan: f/u lactic acid, chest x-ray, UA and blood cx / place jimenes for Is and Os LATE ENTRY 830 PM #Hypotension Called by the Pt's RN Dimas who informed me that the patient's SBP dropped to the 70s UA + for leuk est / chest xray shows poor aeration and lesion at the right lobe due to cancer but the final read is pending...its possible that the has post- obstructive PNA ABG shows only mild hypoxia, repeat UA, lactic, blood cx and chest xray still pending Plan: 2L bolus IVF / start emperic Zosyn / target MAP 65-70/ target UOP at least 30ml/kg/H LATE ENTRY 1057PM #Hepatic Encephalopathy ammonia is elevated Plan: lactulose rectally LATE ENTRY 445AM #Possible Hepatorenal Syndrome -per d/w RN Dimas the pt's BP remains low despite 2L of IVF, the UOP is low and the patient appears edematous -Suspect Hepatorenal Syndrome (based on the presence of oliguric kidney failure, bland urine sediment, edema, ascites Plan:d/c IVF / tolerate MAP around 60 / f/u urine Na if low will hold furosemide and give albumin challenge with 25% albumin at 1G/kg body weight for 2 days, if he responds to this then he doesn't have HRS, if he doesn't respond to this then he may have type 1 or type 2 HRS / will ask the day time team to reach out to GI at [facility] LATE ENTRY 506AM The patient is more alert now than he was prior to transfer to PCU; after lactulose he had a BM. He is following commands now but is still lethargic He has expiratory wheezing. There is no documented hx of COPD or Asthma but he was a smoker and may have undiagnosed COPD Plan: solumedrol x1 / levalbuterol neb x 1 / repeat respiratory panel in case he caught a virus during this admission LATE ENTRY 520AM I called the patient's to give her an update and obtain consent to transfuse albumin. 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 VS,Fishbone, I+O VS, Fishbone, I+O Laboratory Tests 08/15/19 07:32 Vital Signs Date Time Temp Pulse Resp B/P (MAP) Pulse Ox O2 Delivery O2 Flow Rate FiO2 08/15/19 15:08 91 Nasal Cannula 3.0 08/15/19 14:10 99.1 112 22 106/46 (66) I&O- Last 24 Hours up to 6 AM 08/15/19 06:00 Intake Total 1340 ml Output Total 220 ml Balance 1120 ml REBECCA LOCKE MD Aug 15, 2019 19:41
[2019-08-15 20:28] VITALS: BP 74/32
[2019-08-15] MEDS ORDERED: NS 1,000 ML IV ONE ×2 (20:30→21:30)
[2019-08-15 21:45] VITALS: BP 98/44
[2019-08-15] MEDS: PIPERACILLIN/TAZOBACTAM SOD 3.375 GM in D5W MINI-BAG PLUS 50 ML IV SCH (21:59)
[2019-08-15] MEDS ORDERED: ACETAMINOPHEN 650 MG SUPP PR ONE (23:00)
[2019-08-15] MEDS ORDERED: LACTULOSE 20 GM/30 ML SYRUP UD PO PRN (23:00)
[2019-08-15] MEDS ORDERED: LACTULOSE 20 GM/30 ML SYRUP UD PR SCH (23:00)
[2019-08-16] VITALS: BP 106/60
[2019-08-16] MEDS: PIPERACILLIN/TAZOBACTAM SOD 3.375 GM in D5W MINI-BAG PLUS 50 ML IV SCH (03:44)
[2019-08-16 04:00] VITALS: BP 96/46
[2019-08-16] MEDS ORDERED: NS 1,000 ML IV ONE (04:15)
[2019-08-16] MEDS ORDERED: KETOROLAC 30 MG/ML 1ML VIAL IV ONE (04:30)
[2019-08-16] MEDS ORDERED: methylPREDNISolone 125MG 2ML VIAL IV ONE (05:15)
[2019-08-16] MEDS ORDERED: LEVALBUTEROL 1.25 MG/0.5 ML CONCENTRATE NEB NEB ONE (05:15)
[2019-08-16] MEDS ORDERED: FLEET ENEMA PR PRN (05:30)
[2019-08-16] MEDS ORDERED: HYOSCYAMINE SULFATE 0.125 MG SUBL TABLET PO PRN (05:30)
[2019-08-16] MEDS ORDERED: ONDANSETRON 4MG/2ML VIAL IV PRN (05:30)
[2019-08-16] MEDS ORDERED: SCOPOLAMINE 1MG TRANSDERMAL PATCH TOP PRN (05:30)
[2019-08-16] MEDS ORDERED: ATROPINE SULFATE 1% OP SOLN 2 ML BTL SL PRN (05:30)
[2019-08-16] MEDS: ACETAMINOPHEN 500 MG TAB PO SCH (06:00)
[2019-08-16] MEDS ORDERED: LORazepam 2 MG/ML VIAL IV PRN (08:00)
[2019-08-16] MEDS ORDERED: MORPHINE 2 MG/ML 1ML VIAL (J2270) IV PRN (08:00)
[2019-08-16] MEDS: MORPHINE 2 MG/ML 1ML VIAL (J2270) IV PRN (08:03)
[2019-08-16] MEDS: oxyCODONE 10 MG CR TAB PO SCH (08:26)
--- NOTE | 2019-08-16 09:00 | IPNPDOC ---
Text Note Date of Service The patient was seen on 08/16/19. NOTE CYTOPATHOLOGY TECHNOLOGIST Progress note Subjective: Patient was seen this morning laying comfortably in bed. His is at bedside, all questions answered. She states their son is also visiting this morning. Objective: Maksim appears comfortable laying in bed. He is lethargic and does not respond to his name or any questions directed toward him. He is breathing and opens his eyes multiple times during my visit. Assessment: 79 year old male with metastatic cancer of unknown origin, family has decided on CYTOPATHOLOGY TECHNOLOGIST after rapid functional and cognitive decline. Patient was septic on admission, with possible post obstructive pneumonia. Very poor prognosis. Plan: Continue comfort measures. IV morphine for pain, ativan for anxiety, zofran for nausea. Manage secretions with scopolamine, atropine drops, and levsin. Hospice consult pending to discuss hospice house or return home with hospice care. Talked with this morning who agrees with this plan. Attending attestation: Patient independently evaluated, agree with resident's plan. VS,Fishbone, I+O VS, Fishbone, I+O Vital Signs Date Time Temp Pulse Resp B/P (MAP) Pulse Ox O2 Delivery O2 Flow Rate FiO2 08/16/19 08:13 20 Nasal Cannula 5.0 08/16/19 04:00 98.0 98 96/46 (31) 95 I&O- Last 24 Hours up to 6 AM 08/16/19 05:59 Intake Total 800 ml Output Total 690 ml Balance 110 ml GEOVANNA MAYA D.O. Aug 16, 2019 09:00 OSMANI RICHARDSON MD Aug 16, 2019 10:40
[2019-08-16] MEDS: LORazepam 2 MG/ML VIAL IV PRN (16:10)
--- NOTE | 2019-08-17 07:48 | REP ---
AP PORTABLE CHEST: 08/15/2019. COMPARISON: 08/12/2019 CT and portable chest. CLINICAL HISTORY: Altered mental status. FINDINGS: Large right perihilar lung mass is again seen. There is lesser degree of inflation and crowded markings but no also vascular congestion. Some basilar atelectasis or infiltrates, left greater than right. Heart size unchanged. The aorta is mildly tortuous. Airway midline. There are degenerative changes throughout the spine. IMPRESSION: 1. Right lung mass with bibasilar patchy atelectasis or infiltrates, left greater than right. 2. Hypoinflated but still some vascular congestion suggested. No pacheco edema or definite pleural effusion but this is a lordotic portable chest, limiting evaluation of the posterior lower lung lobes. Electronically Signed by Harley Wade MD 08/17/2019 08:43 A
--- NOTE | 2019-08-17 07:53 | IPNPDOC ---
Date Seen The patient's chart was reviewed on 08/17/19. Progress Note Oncology Patient continues with rapid deterioration clinically. He is rapidly moving out of window of opportunity for treatment, even if small cell of lung. Awaiting results of liver biopsy. Patient and family have agreed for hospice and comfort measures only. They are aware that this is a voluntary decision that can be changed at any time On hospice, expected survival less than 2 weeks. Would recommend in-patient hospice as cannot care for patient. Dr. Heard now in charge of case. Please call him with any questions or concerns. Thank you kindly for allowing me to participate in care of this unfortunate patient. In retrospect, had he followed-up with [place] oncologist and agreed to a biopsy as recommended when in [place], we may have seen a different picture and outcome. What we see here is the natural progression of untreated metastatic lung cancer. He was found to have what looks like metastatic disease last December on imaging. We do not have the records, just details gleamed from in- depth discussion with patient's . We were told patient was offered biopsy but refused to proceed and he was also asked to follow up with short-term re- imaging which he also did not do. Essentially, the patient declared himself and decided he was not interested in pursuing any palliative therapy. VS, I&O, 24H, Fishbone Vital Signs/I&O Vital Signs Date Time Temp Pulse Resp B/P (MAP) Pulse Ox O2 Delivery O2 Flow Rate FiO2 08/16/19 21:00 5.0 08/16/19 08:13 20 Nasal Cannula 08/16/19 04:00 98.0 98 96/46 (24) 95 I&O- Last 24 Hours up to 6 AM 08/17/19 06:00 Intake Total 360 ml Output Total 1100 ml Balance -740 ml Laboratory Data Microbiology Microbiology 08/15/19 Blood Culture - Preliminary, Resulted No growth after 24 hours . All specim... 08/12/19 Urine Culture - Final, Complete 08/12/19 Blood Culture - Preliminary, Resulted No Growth after 72 hours. All specime... 08/12/19 Respiratory Virus Panel (PCR) ([facility]) - Final, Complete 08/12/19 Blood Culture - Preliminary, Resulted No Growth after 72 hours. All specime... NABIL BLACKBURN MD Aug 17, 2019 07:52
[2019-08-17] MEDS: LORazepam 2 MG/ML VIAL IV PRN ×2 (16:50→21:29)
--- NOTE | 2019-08-17 18:34 | IPNPDOC ---
Text Note Date of Service The patient was seen on 08/17/19. NOTE Subjective: Patient seen at bedside. No acute overnight events reported. 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 Patient was septic on admission, with possible post obstructive pneumonia. Very poor prognosis. # - continue FISH BAIT PICKER - IV morphine for pain, ativan for anxiety, zofran for nausea; manage secretions with scopolamine, atropine drops, and levsin - hospice consult pending VS,Fishbone, I+O VS, Fishbone, I+O Vital Signs Date Time Temp Pulse Resp B/P (MAP) Pulse Ox O2 Delivery O2 Flow Rate FiO2 08/17/19 09:00 5.0 08/16/19 08:13 20 Nasal Cannula 08/16/19 04:00 98.0 98 96/46 (86) 95 I&O- Last 24 Hours up to 6 AM 08/17/19 05:59 Intake Total 300 ml Output Total 1075 ml Balance -775 ml OSMANI RICHARDSON MD Aug 17, 2019 18:34
[2019-08-17] MEDS: MORPHINE 2 MG/ML 1ML VIAL (J2270) IV PRN (18:56)
[2019-08-17] MEDS ORDERED: FLEET OIL RETENTION ENEMA PR PRN (21:30)
[2019-08-17] MEDS ORDERED: ACETAMINOPHEN 650 MG SUPP PR PRN (21:30)
--- NOTE | 2019-08-17 23:47 | REP ---
Ultrasound-guided liver biopsy This procedure was performed by Jaylene MANZO, under the direct supervision of Dr. Blas. The risks and benefits of the procedure were explained to the patient and informed consent was obtained both verbally and written. Directly prior to the start of the procedure, a formal timeout was done in the procedure room. one of the cystic masses in the left lobe of the liver was localized using ultrasound guidance. The skin was prepped and draped in a sterile fashion. 14 ml of buffered lidocaine was used as a local anesthetic. Using ultrasound guidance a small skin julián was made and a 19/20 gauge coaxial needle biopsy system was inserted and advanced into the liver. 6 core biopsy samples were obtained and sent to the lab. The patient tolerated the procedure well and there were no immediate complications. After the appropriate monitored convalescence the patient was discharged home from the department. Reviewed by ANAIS Azar 08/15/2019 03:23 P Electronically Signed by Mark Blas MD 08/17/2019 11:38 P
[2019-08-18] MEDS: LORazepam 2 MG/ML VIAL IV PRN ×2 (06:10→10:27)
--- NOTE | 2019-08-18 09:46 | IPNPDOC ---
Text Note Date of Service The patient was seen on 08/18/19. NOTE INFORMATION TECHNOLOGY TECHNICIAN Progress note Subjective: Patient was seen this morning laying comfortably in bed. His is at bedside, all questions answered. Objective: Maksim appears comfortable laying in bed. He is lethargic and does not respond to his name or any questions directed toward him. He is breathing and opens his eyes multiple times during my visit. Assessment: 79 year old male with metastatic cancer of unknown origin, family has decided on INFORMATION TECHNOLOGY TECHNICIAN after rapid functional and cognitive decline. Patient was septic on admission, with possible post obstructive pneumonia. Very poor prognosis. Plan: Continue comfort measures. IV morphine for pain, ativan for anxiety, zofran for nausea. Manage secretions with scopolamine, atropine drops, and levsin. Hospice consult pending to discuss hospice house or return home with hospice care. Talked with this morning who agrees with this plan. Attending attestation: Patient independently seen and evaluated, agree with resident's plan. VS,Fishbone, I+O VS, Fishbone, I+O Vital Signs Date Time Temp Pulse Resp B/P (MAP) Pulse Ox O2 Delivery O2 Flow Rate FiO2 08/17/19 21:00 5.0 08/17/19 19:06 16 08/16/19 08:13 Nasal Cannula 08/16/19 04:00 98.0 98 96/46 (84) 95 I&O- Last 24 Hours up to 6 AM 08/18/19 06:00 Intake Total 240 ml Output Total 625 ml Balance -385 ml GEOVANNA MAYA D.O. Aug 18, 2019 09:46 OSMANI RICHARDSON MD Aug 20, 2019 12:46
[2019-08-18] MEDS: MORPHINE 2 MG/ML 1ML VIAL (J2270) IV PRN ×2 (10:27→21:56)
[2019-08-19] MEDS ORDERED: LORazepam 2 MG/ML VIAL As Ordered ONE ×2 (01:04→03:16)
[2019-08-19] MEDS: LORazepam 2 MG/ML VIAL IV PRN ×2 (01:08→03:19)
[2019-08-19] MEDS: MORPHINE 2 MG/ML 1ML VIAL (J2270) IV PRN ×2 (01:38→03:14)
[2019-08-19] MEDS ORDERED: IPRATROPIUM 0.5MG/ALBUTEROL 2.5MG INH SOL UD 3ML (DUONEB) NEB PRN (03:00)
--- NOTE | 2019-08-19 16:23 | DS.PDOC ---
Discharge Summary General Date of Admission Aug 12, 2019 at 13:10 Date of Discharge 08/19/2019 Discharge Summary PROCEDURES PERFORMED DURING STAY: [None]. ADMITTING DIAGNOSES: 1. Upper Lobe lung cancer with metastatic lesions to liver and possibly bone 2. HTN 3. HLD 4. Morbid Obesity 5. Hx of Bronchiectasis 6. Hx of smoking DISCHARGE DIAGNOSES: 1. Metastatic Melanoma - Patient is no 2.Respiratory failure 2. HTN 3. HLD 4. Morbid Obesity 5. Hx of Bronchiectasis 6. Hx of smoking COMPLICATIONS/CHIEF COMPLAINT: Metastatic Lung Carcinoma. HISTORY OF PRESENT ILLNESS: This is a 79-year-old DO NOT RESUSCITATE, DO NOT INTUBATE male with a history of stage IV melanoma on the right upper extremity, deep vein thrombosis (DVT) in the left lower extremity, bowel perforation with resection due to perforated diverticulum in 2009, basal cell carcinoma in 2013 in [place], carpal tunnel and hypertension, diabetes, presents to the emergency room with a 1-week history of worsening shortness of breath and pain in the upper neck and cervical region and shoulder area. The patient describes it as achy with no improvement with taking three tablets of acetaminophen daily. Worse with walking or sitting or trying to get up; says he has not seen a physician for this. This was accompanied with shortness of breath for about a week, better when he was given oxygen in the emergency room. No prior episodes of shortness of breath. No chest pain, pressure or tightness. No hemoptysis. No history of pulmonary embolism (PE) in the past. Has had decrease in appetite with a 10-pount weight loss from coming back from [place] June 19. Otherwise denies any nausea, vomiting, diarrhea, abdominal pain. Denies any abdominal distention, changes in sleep habits. Able to ambulate without much difficulty and uses his cane. Denies any dysuria, urgency, frequency. In the emergency room (ER), evaluation included CT chest, which showed a right upper lobe mass, as well as a right satellite nodule in the right middle lobe and numerous 2 to 5 mm size nodules spread throughout the lung abrams bilaterally.There is some chronic cylindrical bronchiectasis and basilar fibrotic change. Significant adenopathy is noted and evidence of hepatic metastasis. Hospitalist service was called to admit the patient for a new diagnosis of metastatic lung cancer with known history of smoking but quit 25 years ago HOSPITAL COURSE: Following admission Mr Espinoza admission the focus of his care revoled around supportive care while a plan was made to address his now diagnose of likely metastatic cancer. He received fluid support with both normal saline resuscitation and IV/oral diuretics when appropriate. His organ function was monitored with daily CMPs and CBCs. His bone pain was managed with the appropriate narcotics and acetaminophen. He continued to receive home medic ations for his lipids for a brief period of time before those were discontinued. He Had a brief period of sharp chest pain that was related to movement which happened to respond to Nitroglycerin. Finally he underwent liver biopsy to classify his metastasis but unfortunately passed a few days later due to overal decompensation of his condition which ultimately lead to respiratory and metabolic failure. The diagnosis of metastatic melanoma was given to his surviving who was grateful to have a final diagnosis. DISCHARGE MEDICATIONS: Please see below. ALLERGIES: Please see below. PHYSICAL EXAMINATION ON DISCHARGE: Patient overnight prior to being seen, however his overall condition remained consistent over the days leading to his . Please reference prior notes. LABORATORY DATA: Please see below. IMAGING: CXR 08/12/19: Right lung mass approximately 7 cm in diameter Chest CT 08/12/19:Right lung masses consistent with neoplasm along with evidence of hepatic metastasis. There is significant adenopathy as well Cervical Spine X-ray 08/12/19: Significant degenerative changes, particularly at C4-5, C5-6, and C6-7 levels. No gross fracture. If there is clinical concern for fracture, then CT would be recommended Vascular US 08/12/19: Bilateral leg edema. No DVT. Abdomen/Pelvic CT 08/13/2019: Evidence of hepatic and skeletal metastatic disease. Evidence of a small bowel ileus. Para-aortic adenopathy. Other findings as described above Chest X-Ray 08/15/2019: Right lung mass with bibasilar patchy atelectasis or infiltrates, left greater than right. Hypoinflated but still some vascular congestion suggested. No pacheco edema or definite pleural effusion but this is a lordotic portable chest, limiting evaluation of the posterior lower lung lobes. DISCHARGE CONDITION: [Stable]. TIME SPENT ON DISCHARGE: 32 minutes. I have not seen the patient on this admission. However, I am the attending physician on service today covering the resident's service. I have reviewed the documentation and sign off on it, agree with the above assessment and plan based on the information available. Vital Signs/I&Os Vital Signs Date Time Temp Pulse Resp B/P (MAP) Pulse Ox O2 Delivery O2 Flow Rate FiO2 08/19/19 03:14 36 Nasal Cannula 5.0 08/16/19 04:00 98.0 98 96/46 (79) 95 I&O- Last 24 Hours up to 6 AM 08/19/19 05:59 Intake Total 0 ml Output Total 100 ml Balance -100 ml Microbiology Microbiology 08/15/19 Blood Culture - Preliminary, Resulted No Growth after 72 hours. All specime... 08/12/19 Urine Culture - Final, Complete 08/12/19 Blood Culture - Final, Complete NO GROWTH AFTER 5 DAYS 08/12/19 Respiratory Virus Panel (PCR) ([facility]) - Final, Complete 08/12/19 Blood Culture - Final, Complete NO GROWTH AFTER 5 DAYS Discharge Medications Scheduled Aspirin (Aspirin EC) 81 Mg Tab, 81 MG PO QHS, (Reported) Atorvastatin Calcium (Atorvastatin Calcium) 10 Mg Tablet, 10 MG PO QHS, (Reporte d) Cyanocobalamin (Cyanocobalamin Injection) 1,000 Mcg/1 Ml Inj, 1,000 MCG IM QMONTH, (Reported) Fenofibrate Nanocrystallized (Tricor) 145 Mg Tab, 145 MG PO DAILY, (Reported) Furosemide (Furosemide) 20 Mg Tablet, 60 MG PO DAILY, (Reported) Glipizide (Glipizide) 10 Mg Tab, 10 MG PO BID, (Reported) 2ND DOSE WITH DINNER Insulin Glargine,Hum.rec.anlog (Lantus Solostar) 100 Unit/1 Ml Insuln.pen, 50 UNIT SC QAM, (Reported) Liraglutide (Victoza 3-Colt) 0.6 Mg/0.1 Ml Pen.injctr, 1.2 MG SC DAILY, (Reported) Metformin HCl (Metformin HCl ER) 500 Mg Tab.er.24h, 500 MG PO QHS, (Reported) Valsartan (Valsartan) 80 Mg Tab, 80 MG PO DAILY, (Reported) Scheduled PRN Albuterol Sulfate (Albuterol Sulfate Hfa) 8.5 Gm Hfa.aer.ad, 2 PUFFS INH Q4H PRN for SOB/WHEEZING, (Reported) Allergies Coded Allergies: No Known Drug Allergies (Verified Allergy, Unknown, 07/12/18) JOHN ENCISO-3 Aug 19, 2019 16:23 COY KOVACS MD Aug 19, 2019 18:47
== END 2019-08-19 06:45 | disposition expired | DRG 871 ==
LOC: M ED 08:59 → M ED INP 13:10 → ENRESERV 14:07 → M MSPAV 15:38 → M PCU 08-15 20:10 → M MSPAV 08-16 13:16
PROVIDERS: ADMIT General Practice; ATTEND Student in an Organized Health Care Education/Training Program
PROC: 0FB23ZX Excision of Left Lobe Liver, Percutaneous Approach, Diagnostic (ICD-10-PCS; principal; 2019-08-15 13:30)
DX: A41.9 Sepsis, unspecified organism (principal); K76.7 Hepatorenal syndrome; J18.9 Pneumonia, unspecified organism; J96.90 Respiratory failure, unspecified, unspecified whether with hypoxia or hypercapnia; C34.11 Malignant neoplasm of upper lobe, right bronchus or lung; C78.7 Secondary malignant neoplasm of liver and intrahepatic bile duct; N17.9 Acute kidney failure, unspecified; C77.1 Secondary and unspecified malignant neoplasm of intrathoracic lymph nodes; C79.51 Secondary malignant neoplasm of bone; G93.40 Encephalopathy, unspecified; N18.3 Chronic kidney disease, stage 3 (moderate); E11.9 Type 2 diabetes mellitus without complications; K72.90 Hepatic failure, unspecified without coma; C43.9 Malignant melanoma of skin, unspecified; Z79.82 Long term (current) use of aspirin; Z79.899 Other long term (current) drug therapy; E66.01 Morbid (severe) obesity due to excess calories; I12.9 Hypertensive chronic kidney disease with stage 1 through stage 4 chronic kidney disease, or unspecified chronic kidney disease; Z66 Do not resuscitate; J47.9 Bronchiectasis, uncomplicated; Z87.891 Personal history of nicotine dependence; Z68.35 Body mass index [BMI] 35.0-35.9, adult; E78.5 Hyperlipidemia, unspecified; K59.00 Constipation, unspecified